=== PATIENT | male | born 1935 | race Caucasian/White ===

== ENCOUNTER 2016-10-18 06:24 | Inpatient (IN) | payer MEDICARE, BC ==
--- NOTE | 2016-10-07 14:04 | HP ---
PREOPERATIVE HISTORY AND PHYSICAL: DATE OF SURGERY: 10/18/16 PROCEDURE: Right total knee replacement. CHIEF COMPLAINT: Right knee pain. HISTORY OF PRESENT ILLNESS: Mr. Santoyo is an 80-year-old male who presented to the clinic for ongoing right knee pain due to severe osteoarthritis. He has failed conservative measures and has therefore agreed to undergo a right total knee replacement with Dr. Beck on 10/18/16. PAST MEDICAL HISTORY: 1. Benign prostatic hypertrophy. 2. Diabetes type 2. 3. Hyperlipidemia. 4. Hypertension. 5. Chronic kidney disease. 6. Neuropathy. 7. Obesity. 8. Osteoporosis. 9. Vitamin D deficiency. 10. Aortic aneurysm 3.5 cm. 11. Metabolic encephalopathy. 12. History of pneumonia, left lower lobe, has resolved. PAST SURGICAL HISTORY: 1. Knee arthroscopy bilaterally. 2. Hernia repair. The patient reports no complications with anesthesia. MEDICATIONS: 1. Aspirin 81 mg 1 by mouth daily. 2. Cozaar 50 mg 1 by mouth daily. 3. Vitamin D 1000 units 1 by mouth daily. 4. Lantus 100 units per mL as directed. 5. Welchol 625 mg. 6. Finasteride 5 mg 1 tablet daily. 7. VESIcare 5 mg daily. 8. Tamsulosin 0.4 mg 1 tablet by mouth daily. ALLERGIES: ZOSYN. FAMILY HISTORY: Positive family history of heart disease and cancer. SOCIAL HISTORY: He is . 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 He lives with his . He is a former smoker. He reports occasional alcohol consumption about 2 beverages a day. He rarely exercises. REVIEW OF SYSTEMS: A 14-point review of systems was reviewed with the patient and found to be positive for intermittent diarrhea, otherwise negative. Denies chest pain, shortness of breath, bleeding disorders, history of DVT or PE, or complications with prior anesthesia. PHYSICAL EXAMINATION GENERAL: A well-developed, well-nourished 81-year-old male, in no acute distress. Alert and oriented x3. Appropriate mood and affect. VITAL SIGNS: Height 72, weight 215. Pulse 68, blood pressure 132/78, respiratory rate 18. BMI 29.2. HEENT: Normocephalic, atraumatic. Throat clear. NECK: Supple. PULMONARY: Lungs are clear to auscultation bilaterally. No wheezing, rhonchi, or rales. CARDIO: Regular rate and rhythm. S1 and S2. No murmurs, rubs, or gallops. No edema. ABDOMEN: Positive bowel sounds. Soft, nontender. NEURO: Alert and oriented x3. Cranial nerves grossly intact. Sensation intact to light touch. MUSCULOSKELETAL: Right knee, skin is intact. Tenderness to palpation over the medial joint line in the medial and lateral borders of the patella. Positive patellar grind. Range of motion from 5 to 110. Stable with varus and valgus stress. +2 dorsalis pedis pulses. Sensation intact to light touch distally. STUDIES: Multiple-view radiographs of the right knee reveal [id number] arthritis of the medial compartment. IMPRESSION: Right knee severe osteoarthritis. PLAN: The patient is scheduled to undergo a right total knee replacement with Dr. Beck on 10/18/16. He has been cleared by his primary care physician. He is awaiting clearance for Cardiology. He will return to the office 1 month postop for followup and x-rays. Prescription for Percocet was e-prescribed to the patient's pharmacy for postoperative pain management and Coumadin was sent to his pharmacy for postop DVT prophylaxis. HUMAIRA MURRAY [id number]/[facility] #: [id number] TU
[~2016-10-18 06:24] MED LIST: Buffered Lidocaine 1% SYRIN* 3 ML/SYR SYRINGE INTRADERM ONE; Famotidine IV* 10 MG/ML 2 ML (20 mg) IV ONE; Metoclopramide IV* 5 MG/ML 2 ML VIAL IV SLOW PU ONE
[2016-10-18] MEDS ORDERED: Metoclopramide IV* 5 MG/ML 2 ML VIAL ONE (06:39)
[2016-10-18] MEDS ORDERED: ceFAZolin 2 GM PREMIX(*) 2 GM/50 ML BAG IVPB ONE (06:39)
[2016-10-18] MEDS ORDERED: Famotidine IV* 10 MG/ML 2 ML (20 mg) ONE (06:39)
[2016-10-18] MEDS ORDERED: Midazolam* 1 MG/ML 5 ML VIAL (5 MG) ONE (06:41)
[2016-10-18] MEDS ORDERED: HYDROmorphone* 1 MG/ML 1 ML SYR ONE ×2 (06:41→08:34)
[2016-10-18] MEDS ORDERED: Morphine PF AMP (0.5MG/ML)* 5 MG/10 ML AMP ONE (06:41)
[2016-10-18] MEDS ORDERED: fentaNYL* 50 MCG/ML 2 ML VIAL (100 MCG VIAL) ONE ×2 (06:41→07:19)
[2016-10-18] MEDS ORDERED: Bupivacaine 0.5% SDV PF* 30 ML VIAL ONE (07:01)
[2016-10-18] MEDS ORDERED: Dexmedetomidine* 200 MCG/2 ML 2 ML VIAL ONE (07:01)
[2016-10-18] MEDS ORDERED: PROCHLORPERAZINE INJ 5 MG/ML 2 ML VIAL IV PRN (07:10)
[2016-10-18] MEDS ORDERED: fentaNYL* 50 MCG/ML 2 ML VIAL (100 MCG VIAL) IV PRN (07:10)
[2016-10-18] MEDS ORDERED: DiMENhydriNATE IV* 50 MG/ML VIAL IV PUSH PRN (07:10)
[2016-10-18] MEDS ORDERED: Ondansetron INJ* 2 MG/ML VIAL IV PRN ×2 (07:10→09:48)
[2016-10-18] MEDS ORDERED: Propofol* 10 MG/ML 20 ML BTL IV PUSH ONE (08:06)
[2016-10-18] MEDS ORDERED: Bisacodyl SUPP* 10 MG SUPP PR PRN (09:48)
[2016-10-18] MEDS ORDERED: Ondansetron TAB* 4 MG PO PRN (09:48)
[2016-10-18] MEDS ORDERED: Morphine INJ* 4 MG/ML 1 ML SYRINGE IV PRN (09:48)
[2016-10-18] MEDS ORDERED: Acetaminophen TAB* 325 MG PO PRN (09:48)
[2016-10-18] MEDS ORDERED: Polyethylene Glycol 3350* 17 GM PACKET PO PRN (09:48)
[2016-10-18] MEDS ORDERED: diPHENhydraMINE IV* 50 MG/ML 1 ml VIAL (BENADRYL) IV PRN (09:48)
[2016-10-18] MEDS ORDERED: LACTULOSE* 30 ML UDC PO PRN (09:48)
[2016-10-18] MEDS ORDERED: D5W 1/2 NS 1000 ML BAG* 1,000 ML IV SCH (10:00)
--- NOTE | 2016-10-18 10:40 | RAD ---
HISTORY: Status post right knee arthroplasty COMPARISONS: October 07, 2016 VIEWS: 2, Frontal and lateral views of the right knee FINDINGS: BONE DENSITY: Normal. BONES: The patient is status post right knee arthroplasty. There is no hardware failure or osteolysis. JOINTS: The patient is status post right knee arthroplasty ALIGNMENT: There is no dislocation. SOFT TISSUES: There is postsurgical change of the soft tissue OTHER FINDINGS: None. IMPRESSION: STATUS POST RIGHT KNEE ARTHROPLASTY
[2016-10-18] MEDS ORDERED: Dextrose 50% Syringe 50 ML* 25 GM/50 ML SYRINGE IV PUSH PRN (14:15)
[2016-10-18] MEDS: Insulin LISPRO* 1 UNITS UNIT SUBCUT SCH (16:39)
[2016-10-18] MEDS: Tamsulosin CAP* 0.4 MG PO SCH (16:54)
[2016-10-18] MEDS: ceFAZolin 1 GM in Dextrose (*) 1 GM/50 ML BAG IVPB SCH (16:54)
[2016-10-18] MEDS ORDERED: Warfarin TAB(*) 4 MG PO ONE (17:00)
[2016-10-18] MEDS: oxyCODONE/Acetamin 5/325 MG* TAB PO PRN (22:10)
[2016-10-18] MEDS ORDERED: oxyCODONE/Acetamin 5/325 MG* TAB PO PRN (22:21)
[2016-10-18] MEDS: Insulin GLARGINE(*) 1 UNITS UNIT SUBCUT SCH (22:22)
[2016-10-18] MEDS: Docusate CAP* 100 MG PO SCH (22:50)
[2016-10-18] MEDS: Solifenacin(NF) 5 MG TAB PO SCH (22:50)
[2016-10-18] MEDS: Magnesium Hydroxide LIQ* 30 ML UDC PO SCH (22:51)
[2016-10-19] MEDS: ceFAZolin 1 GM in Dextrose (*) 1 GM/50 ML BAG IVPB SCH ×2 (00:57→08:06)
--- NOTE | 2016-10-19 01:30 | CONS ---
MEDICAL CONSULTATION REPORT: DATE OF CONSULTATION: PRIMARY CARE PROVIDER: Dr. Pastrana. REQUESTING PROVIDER: Alvarez Beck MD CONSULTING PROVIDER: HUMAIRA Savage SUPERVISING PHYSICIAN: Coty Cordero MD CHIEF COMPLAINT: Status post right total knee replacement. HISTORY OF PRESENT ILLNESS: This is a very pleasant 81-year-old gentleman who underwent a right total knee replacement with Dr. Beck earlier today. He has insulin-dependent diabetes, BPH, hypertension, hyperlipidemia, and chronic kidney disease as well as an abdominal aortic aneurysm. Dr. Beck has requested medical consultation for co-management and assist for comorbid conditions during his postoperative stay. The patient was seen by his primary care provider, Dr. Pastrana, who ordered an aortic ultrasound as well as referral for cardiology consultation preoperatively. Ultrasound of the aorta demonstrated 2 abdominal aortic aneurysms, one measuring 4.1 cm and the other 3.8 cm. This is reportedly slightly larger than prior study from November 2014, the report did not include how much growth. The patient was seen by his human resources team member Dr. Dumont to review the results of the abdominal aortic ultrasound that did not recommend intervention at this time. The patient reports that his insulin has been titrated up to a dose of 45 units twice a day of Lantus and his hemoglobin A1c as of last week was 6.8%. He is followed by Dr. Hayden for Endocrinology. The patient denies any recent illness. He is feeling quite well postoperatively. He underwent a spinal anesthesia and denies any chest pain, shortness of breath, abdominal pain, nausea, or vomiting. PAST MEDICAL HISTORY: 1. BPH. 2. Insulin dependent diabetes. 3. Hyperlipidemia. 4. Chronic kidney disease, stage 3. 5. Diabetic neuropathy. 6. AAA. PAST SURGICAL HISTORY: 1. Knee arthroscopy. 2. Hernia repair. HOME MEDICATIONS: 1. Aspirin 81 mg p.o. daily. 2. Vitamin D 2000 units p.o. daily. 3. Welchol 3 tablets p.o. twice a daily. 4. Finasteride 5 mg p.o. daily. 5. Lantus 45 units subcu twice daily. 6. Losartan 50 mg p.o. daily. 7. Multivitamin 1 tablet p.o. twice daily. 8. [employer] fatty acids 1 capsule p.o. t.i.d. 9. VESIcare 5 mg p.o. at bedtime. 10. Flomax 0.4 mg p.o. at bedtime. SOCIAL HISTORY: The patient lives at home with his . 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 He is a former smoker and occasionally consumes alcohol. REVIEW OF SYSTEMS: As listed above in the HPI and otherwise negative. LABORATORY EVALUATION: I reviewed labs dated 10/08/16, which included a CBC, which was within normal limits and a preop hemoglobin of 14.9 g/dL. A chemistry panel was not available for review. Urinalysis from that same date was unremarkable. IMAGING: Ultrasound of the abdominal aorta was reviewed demonstrating 2 aneurysm regions measuring 4.1 and 3.8 cm, slightly larger when compared to prior study from November 2014. Preop chest x-ray and EKG were not available for review. PHYSICAL EXAMINATION: Vital signs: Temperature 97.3 degrees Fahrenheit, pulse 74 beats per minute, respiratory rate of 16 per minute, oxygen saturation 99% on room, and blood pressure 103/53 mmHg. General: This is a very pleasant 81- year-old gentleman who is sitting comfortably on the hospital bed accompanied by his . HEENT: Head is normocephalic and atraumatic. Mucous membranes are pink and moist. Respiratory: Lungs are clear to auscultation without wheezes, crackles, or rhonchi. Cardiovascular: Heart has a regular rate and rhythm without murmurs, rubs, or gallops. Abdomen: Abdomen is soft and nontender to palpation. Extremities: No significant edema appreciated and distal pulses are intact. Skin: Limited exam shows no concerning rashes or lesions. Psych: The patient is alert and appropriately oriented. ASSESSMENT AND PLAN: This is an 81-year-old gentleman with insulin-dependent diabetes, hypertension, hyperlipidemia, chronic kidney disease, benign prostatic hyperplasia, and known abdominal aortic aneurysm who underwent elective right total knee replacement with Dr. Beck earlier today. Hospitalist group has been consulted for medical management. 1. Status post right total knee replacement - management per orthopedic surgery including DVT prophylaxis, pain management, and discharge planning. 2. Insulin-dependent diabetes - this appears to be well controlled. He is followed by Dr. Hayden for Endocrinology care. We will plan to continue his home doses of Lantus at 45 units twice daily and we will cover additional hyperglycemia with sliding scale Humalog during his hospital stay. 3. Hypertension - the patient is normotensive and slightly hypotensive postoperatively. We will plan to hold his Losartan at this time and determine whether it is appropriate to resume tomorrow. 4. Benign prostatic hyperplasia - Ortiz catheter in place at this time. We will continue his finasteride, Flomax, and VESIcare. The patient is at high risk for urinary retention postoperatively as a result of this. 5. Chronic kidney disease - recent chemistry panel is not available for review , but this is reportedly a stage 3 - basic metabolic panel obtained tomorrow. 6. Abdominal aortic aneurysm - recent aortic aneurysm ultrasound demonstrates measurements of 4.1 and 3.8 cm on 2 different aneurysms. He is followed by cardiology. No intervention suggested. 7. Code status - the patient is full code. 8. DVT prophylaxis - per orthopedic surgery, the patient has been ordered Coumadin and Lovenox for prophylaxis. 9. Health care proxy: The patient's . DISPOSITION: Hospitalist group will continue to follow along during this patient's postoperative stay. HUMAIRA SAVAGE CC: Dr. Pastrana* [id number]/[facility] #: [id number] TU
[2016-10-19] MEDS: oxyCODONE/Acetamin 5/325 MG* TAB PO PRN ×4 (05:33→21:49)
[2016-10-19] MEDS: Docusate CAP* 100 MG PO SCH ×2 (07:59→22:12)
[2016-10-19] MEDS: Magnesium Hydroxide LIQ* 30 ML UDC PO SCH ×2 (07:59→22:12)
[2016-10-19] MEDS: Vitamin THERAPEUTIC TAB PO SCH (07:59)
[2016-10-19] MEDS: Finasteride TAB* 5 MG PO SCH (08:00)
[2016-10-19] MEDS: Insulin LISPRO* 1 UNITS UNIT SUBCUT SCH ×3 (08:01→17:47)
[2016-10-19] MEDS: Insulin GLARGINE(*) 1 UNITS UNIT SUBCUT SCH ×2 (08:01→22:15)
--- NOTE | 2016-10-19 08:04 | OP ---
OPERATIVE REPORT: DATE OF OPERATION: 10/18/16 DATE OF : 33 SURGEON: Alvarez Beck MD. SOCIAL WORK THERAPIST: Nelia Blanchard RPA. ANESTHESIA: Spinal, with sedation. PRE-OP DIAGNOSIS: Osteoarthritis, right knee. POST-OP DIAGNOSIS: Osteoarthritis, right knee. OPERATIVE PROCEDURE: Right total knee arthroplasty. ESTIMATED BLOOD LOSS: Less than 50 cc. COMPLICATIONS: None. HARDWARE: Bhavin Person[employer] #9 femur, G tibia, 10 mm polyethylene spacer, 38 mm all polyethylene herrera lar button. SUMMARY: Mr. Santoyo is an 81-year-old male who has had more and more troubles with right knee pa in. It is very specifically [id number] in the medial compartment and has become more limited stephen use of his knee pain. I discussed with him that a total knee arthroplasty should work well to decre ase his pain and improve his function. Risks of surgery such as infection, scar formation, stiffnes s, DVT, pulmonary embolism, hardware failure, and continued pain were some of the risks discussed. He had been declared medically optimized and wished to proceed. DESCRIPTION OF PROCEDURE: The patient was brought to the OR and spinal anesthesia was established. Ortiz catheter was placed. Tourniquet was placed over the proximal thigh and was used during the c ase. Total tourniquet time would be 88 minutes. Right knee was prepped and then draped. Esmarch w as used to exsanguinate the leg and the tourniquet was raised. Midline incision was made coming jus t medial to the tibial tubercle and was carried down through the skin and subcutaneous tissues. Sma ll bleeders encountered were ligated using electrocautery. Sharp parapatellar arthrotomy was made a nd quite a bit of clear, thick, yellowish joint fluid was encountered. Soft tissues were sharply el evated from the medial side of the tibia and the fat pad were sharply excised. Patella measured 26 mm in thickness and a 10 to 11 mm cut was taken. Patella was then easily subluxated laterally and t he knee was flexed up. Nice exposure to the distal femur was obtained. Step drill was used to open the femoral canal, intramedullary guide was placed. Guide was adjusted until it appeared parallel with the epicondyles and posterior condyles and then was pinned into place. Distal femoral cutting guide was then pinned in place and the intramedullary guide was removed. Distal femoral cut was dawn en and it appeared a nice cut was obtained. Femur was sized and he sat just above a 9. I felt it wo uld be better to undersize him a little bit and a 9 cutting block was called for. Drill was run thr ough the superior hole and it came out just in the cortex, so I did not think we would notch the ant erior cortex of the femur. Anterior and posterior femoral cuts, followed by the chamfer cuts were a ll taken. Attention was turned to the tibia. Step drill was used to open the tibial canal and the intramedullary guide was placed. Outrigger was adjusted until it appeared it would take 2 mm from th e very worn medial side. Proximal tibial cut was then taken and lateral meniscus was also removed. Spacer block was placed and it could be seen that the tibial cut was perfect as the alignment soniya c obie right down the anterior spine of the tibia, but on the femoral side it appeared that I could dawn e a little bit more from the medial side as he will come into slight valgus if I seated the top of t he spacer block on the femur. Using a free hand cut approximately 1 to 2 mm was taken from the medi al femoral condyle. Cutting block was replaced and the chamfer cut was recut with a 12 block, this really sat perfectly. Proximal tibia was then sized and the G sat perfectly. Proximal tibia was dr illed and then punched. Attention was returned to the femur and a #9 was placed and stud holes were drilled and the notch cut was taken. A 10 spacer was then placed and he came out nicely into full extension without any instability and easily flexed past 135 degrees. Patellar tracking was fine wi th this. Patella was measured and a 38 seemed to sit quite well. Holes were drilled and trial was snapped into place, and patellar tracking was perfect. Trial instrumentation was removed and the floyd ent was being prepared. The knee was copiously pulse lavaged. Tibia, followed by femur and patella were all cemented into place and the cement was allowed to harden. Knee was then searched for exce ss cement and a few small pieces were found. He was again trialed with a 10 and had the same wonder ful motion and stability; 10 polyethylene was then snapped into place. Knee was again copiously pul se lavaged and the parapatellar arthrotomy was repaired using interrupted #1 Vicryl sutures. Tourni quet was let down and no significant bleeding was encountered. Knee was again pulse lavaged and the subcutaneous tissues were reapproximated using 2-0 Vicryl. Skin was closed using bang. Steril e dressing and Cryo/Cuff were applied in the OR. The patient was then awakened and stable on transf er to the recovery room. [id number]/[facility] #: [id number]
[2016-10-19 09:02] LABS: Hematocrit 34 % (42-52); Hemoglobin 11.6 g/dl (14.0-18.0)
[2016-10-19 09:05] LABS: Comments Flag Yes
[2016-10-19] MEDS: Heparin VIAL(*) 5000 UNITS/ML VIAL (FIVE THOUSAND) SUBCUT SCH ×2 (09:13→22:12)
[2016-10-19 09:36] LABS: BUN/Creatinine Ratio 14.2 (8-20); Calcium 8.2 mg/dL (8.6-10.3); EGFR African American 50.2 (>60); Potassium 4.1 mmol/L (3.5-5.0)
--- NOTE | 2016-10-19 09:38 | PN ---
Progress Note - Progress Note SOAP: Subjective: []Patient seen OOB in chair. Complains of moderate right knee pain. Denies SOB , CP or dizziness. Hoping to go home with VNS. Objective: [] Vital Signs Temp 98.3 F 10/19/16 07:35 Pulse 74 10/19/16 07:35 Resp 18 10/19/16 08:00 BP 103/60 10/19/16 07:35 Pulse Ox 98 10/19/16 07:35 Intake & Output 10/18/16 10/19/16 10/19/16 18:59 06:59 18:59 Intake Total 3651 2472 320 Output Total 500 850 250 Balance 3151 1622 70 Intake: IV Fluids 3450 672 D5W 1/2 NS 672 LR 3400 NS 50ML, Cefazolin 2G 50 IVPB 201 D5W 1/2 NS 201 Oral 1800 320 Output: Ortiz 250 850 250 Estimated Blood Loss 250 Laboratory Results - last 24 hr 10/18/16 10/18/16 10/18/16 09:51 16:27 21:38 Hgb Hct INR (Anticoag Therapy) Sodium Potassium Chloride Carbon Dioxide Anion Gap BUN Creatinine Est GFR ( Amer) Est GFR (Non-Af Amer) BUN/Creatinine Ratio Glucose POC Glucose (mg/dL) 123 H 134 H 154 H Calcium 10/19/16 10/19/16 10/19/16 07:27 08:50 08:50 Hgb 11.6 L Hct 34 L INR (Anticoag Therapy) 1.21 H Sodium Potassium Chloride Carbon Dioxide Anion Gap BUN Creatinine Est GFR ( Amer) Est GFR (Non-Af Amer) BUN/Creatinine Ratio Glucose POC Glucose (mg/dL) 186 H Calcium 10/19/16 08:50 Hgb Hct INR (Anticoag Therapy) Sodium 132 L Potassium 4.1 Chloride 101 Carbon Dioxide 23 Anion Gap 8 BUN 24 Creatinine 1.69 H Est GFR ( Amer) 50.2 Est GFR (Non-Af Amer) 39.0 BUN/Creatinine Ratio 14.2 Glucose 161 H POC Glucose (mg/dL) Calcium 8.2 L right knee dressing is dry and intact, cryo on calf is NT and soft +DF/PF right ankle neurovascularly intact distally Assessment: []s/p Right total knee arthroplasty POD #1 Plan: []PT/OT WBAT pain management Heparin/ Coumadin for DVT prophylaxis: Coumadin 6 mg today Home with VNS
--- NOTE | 2016-10-19 15:01 | PN ---
Subjective Date of Service: 10/19/16 Interval History: Patient reports fair pain control. Denies CP, SOB, abdominal pain, n/v. He reports that he had difficulty working with PT and his doesn't feel that she would be able to handle him at home. Objective Active Medications: Acetaminophen (Tylenol Tab*) 650 mg PO Q4H PRN PRN Reason: pain, fever Last Admin: 10/18/16 16:55 Dose: 650 mg Bisacodyl (Dulcolax Supp*) 10 mg NE DAILY PRN PRN Reason: constipation Colesevelam HCl (Welchol(Nf)) 1,875 mg PO BID [facility] Dextrose (D50w Syringe 50 Ml*) 12.5 gm IV PUSH .FOR FS < 60 - SS PRN PRN Reason: FS < 60 Diphenhydramine HCl (Benadryl Iv*) 12.5 mg IV Q6H PRN PRN Reason: PRURITIS Docusate Sodium (Colace Cap*) 100 mg PO BID [facility] Last Admin: 10/19/16 07:59 Dose: 100 mg Finasteride (Proscar Tab*) 5 mg PO QAM [facility] Last Admin: 10/19/16 08:00 Dose: 5 mg Heparin Sodium (Porcine) (Heparin Vial(*)) 5,000 units SUBCUT Q12HR [facility] Last Admin: 10/19/16 09:13 Dose: 5,000 units Dextrose/Sodium Chloride (D5w 1/2 Ns 1000 Ml Bag*) 1,000 mls @ 100 mls/hr IV PER RATE [facility] Last Admin: 10/19/16 00:55 Dose: 100 mls/hr Insulin Glargine (Lantus(*)) 45 units SUBCUT BID [facility] Last Admin: 10/19/16 08:01 Dose: 45 unit Insulin Human Lispro (Humalog*) 0 units SUBCUT AC [facility] PRN Reason: Protocol Lactulose (Lactulose*) 30 ml PO Q6H PRN PRN Reason: constipation Magnesium Hydroxide (Milk Of Magnesia Liq*) 30 ml PO BID [facility] Last Admin: 10/19/16 07:59 Dose: 30 ml Morphine Sulfate (Morphine Inj (Syringe)*) 4 mg IV Q2H PRN PRN Reason: PAIN - BREAKTHROUGH Multivitamins (Theragran Tab*) 1 tab PO DAILY [facility] Last Admin: 10/19/16 07:59 Dose: 1 tab Ondansetron HCl (Zofran Inj*) 4 mg IV Q6H PRN PRN Reason: nausea Ondansetron HCl (Zofran Tab*) 4 mg PO Q6H PRN PRN Reason: NAUSEA Last Admin: 10/19/16 09:13 Dose: 4 mg Oxycodone HCl (Roxycodone Tab*) 10 mg PO Q4H PRN PRN Reason: PAIN - SEVERE Oxycodone/Acetaminophen (Percocet 5/325 Tab*) 1 tab PO Q4H PRN PRN Reason: PAIN - MILD Oxycodone/Acetaminophen (Percocet 5/325 Tab*) 2 tab PO Q4H PRN PRN Reason: PAIN - MODERATE Last Admin: 10/19/16 13:08 Dose: 2 tab Oxycodone/Acetaminophen (Percocet 5/325 Tab*) 2 tab PO Q3H PRN PRN Reason: PAIN Pharmacy Profile Note (Coumadin Daily Reminder*) 1 note FOLLOW UP 1700 [facility] Polyethylene Glycol/Electrolytes (Miralax*) 17 gm PO DAILY PRN PRN Reason: Constipation Solifenacin (Vesicare(Nf)) 5 mg PO BEDTIME [facility] Last Admin: 10/18/16 22:50 Dose: 5 mg Tamsulosin HCl (Flomax Cap*) 0.4 mg PO QPM [facility] Last Admin: 10/18/16 16:54 Dose: 0.4 mg Warfarin Sodium (Coumadin Tab(*)) 6 mg PO ONCE@1700 ONE PRN Reason: Protocol Stop: 10/19/16 17:01 Vital Signs: Temp Pulse Resp BP Pulse Ox 99.4 F 70 16 121/56 96 10/19/16 11:49 10/19/16 11:49 10/19/16 13:08 10/19/16 11:49 10/19/16 11:49 Oxygen Devices in Use Now: Nasal Cannula Appearance: Patient appears very lethargic, but in NAD. Accompanied by . Neck: NL Appearance and Movements; NL JVP Respiratory: Symmetrical Chest Expansion and Respiratory Effort, Clear to Auscultation Cardiovascular: NL Sounds; No Murmurs; No JVD, RRR Abdominal: NL Sounds; No Tenderness; No Distention Extremities: No Edema Skin: No Rash or Ulcers Neurological: Alert and Oriented x 3 Result Diagrams: 10/19/16 08:50 10/19/16 08:50 Assess/Plan/Problems-Billing Assessment: This is an 81 yo male with IDDM, BPH, HLD, CKD, diabetic neuropathy and AAA who is s/p R TKR by Dr Beck on 10/18/16. Hospitalist group consulted for medical co-management. - Patient Problems (1) Status post total knee replacement Comment: POD #1 Management per ortho (2) IDDM (insulin dependent diabetes mellitus) Comment: Last HgbA1c 6.8% Mild hyperglycemia today Cont Lantus at home dose Will increase mealtime Humalog (3) HTN (hypertension) Comment: Normotensive today Plan to resume losartan tomorrow am (4) BPH (benign prostatic hyperplasia) Comment: Cont finesteride, Vesicare, Flomax (5) HLD (hyperlipidemia) (6) CKD (chronic kidney disease) Comment: Stage III Appears near baseline Avoid nephrotoxic agents (7) AAA (abdominal aortic aneurysm) (8) Diabetic neuropathy (9) Full code status (10) DVT prophylaxis Status and Disposition: Discharge planning per ortho. Patient would likely benefit from CHEY stay. No acute medical concerns
[2016-10-19] MEDS ORDERED: Warfarin TAB(*) 6 MG PO ONE (17:00)
[2016-10-19] MEDS: Tamsulosin CAP* 0.4 MG PO SCH (17:48)
[2016-10-19] MEDS: Colesevelam(NF) 625 MG TAB PO SCH (22:12)
[2016-10-19] MEDS: Solifenacin(NF) 5 MG TAB PO SCH (22:12)
[2016-10-20] MEDS: oxyCODONE TAB* 5 MG TAB PO PRN (03:42)
[2016-10-20 06:54] LABS: Hematocrit 33 % (42-52); Hemoglobin 11.2 g/dl (14.0-18.0)
[2016-10-20 06:59] LABS: Comments Flag Yes
[2016-10-20] MEDS: Colesevelam(NF) 625 MG TAB PO SCH (08:36)
[2016-10-20] MEDS: Heparin VIAL(*) 5000 UNITS/ML VIAL (FIVE THOUSAND) SUBCUT SCH ×2 (08:36→20:16)
[2016-10-20] MEDS: Insulin LISPRO* 1 UNITS UNIT SUBCUT SCH ×3 (08:37→18:02)
[2016-10-20] MEDS: Docusate CAP* 100 MG PO SCH ×2 (08:38→20:16)
[2016-10-20] MEDS: Finasteride TAB* 5 MG PO SCH (08:38)
[2016-10-20] MEDS: Losartan TAB* 25 MG PO SCH (08:39)
[2016-10-20] MEDS: Vitamin THERAPEUTIC TAB PO SCH (08:39)
[2016-10-20] MEDS: Magnesium Hydroxide LIQ* 30 ML UDC PO SCH ×2 (08:40→20:16)
[2016-10-20] MEDS: Insulin GLARGINE(*) 1 UNITS UNIT SUBCUT SCH ×2 (08:40→20:42)
[2016-10-20] MEDS: oxyCODONE/Acetamin 5/325 MG* TAB PO PRN ×2 (08:45→20:16)
[2016-10-20] MEDS ORDERED: Warfarin TAB(*) 6 MG PO SCH (17:00)
[2016-10-20] MEDS: Tamsulosin CAP* 0.4 MG PO SCH (18:01)
--- NOTE | 2016-10-20 18:23 | PN ---
Subjective Date of Service: 10/20/16 Interval History: Patient seen and examined at bedside. Pt states that his pain is controlled and he offers no complaints. Denies fever, chills, shortness of breath, chest discomfort, N/V/D. Family History: Unchanged from Admission Social History: Unchanged from Admission Past Medical History: Unchanged from Admission Objective Active Medications: Acetaminophen (Tylenol Tab*) 650 mg PO Q4H PRN Reason: pain, fever Bisacodyl (Dulcolax Supp*) 10 mg MI DAILY PRN Reason: constipation Colesevelam HCl (Welchol(Nf)) 1,875 mg PO BID [facility] Dextrose (D50w Syringe 50 Ml*) 12.5 gm IV PUSH .FOR FS < 60 - SS PRN Reason: FS < 60 Diphenhydramine HCl (Benadryl Iv*) 12.5 mg IV Q6H PRN Reason: PRURITIS Docusate Sodium (Colace Cap*) 100 mg PO BID [facility] Finasteride (Proscar Tab*) 5 mg PO QAM [facility] Heparin Sodium (Porcine) (Heparin Vial(*)) 5,000 units SUBCUT Q12HR [facility] Stop: 10/20/16 21:00 Insulin Glargine (Lantus(*)) 45 units SUBCUT BID [facility] Insulin Human Lispro (Humalog*) 0 units SUBCUT AC [facility] Reason: Protocol Lactulose (Lactulose*) 30 ml PO Q6H PRN Reason: constipation Losartan Potassium (Cozaar Tab*) 50 mg PO QAM [facility] Magnesium Hydroxide (Milk Of Magnesia Liq*) 30 ml PO BID [facility] Morphine Sulfate (Morphine Inj (Syringe)*) 4 mg IV Q2H PRN Reason: PAIN - BREAKTHROUGH Multivitamins (Theragran Tab*) 1 tab PO DAILY [facility] Ondansetron HCl (Zofran Inj*) 4 mg IV Q6H PRN Reason: nausea Ondansetron HCl (Zofran Tab*) 4 mg PO Q6H PRN Reason: NAUSEA Oxycodone HCl (Roxycodone Tab*) 10 mg PO Q4H PRN Reason: PAIN - SEVERE Oxycodone/Acetaminophen (Percocet 5/325 Tab*) 1 tab PO Q4H PRN Reason: PAIN - MILD Oxycodone/Acetaminophen (Percocet 5/325 Tab*) 2 tab PO Q4H PRN Reason: PAIN - MODERATE Oxycodone/Acetaminophen (Percocet 5/325 Tab*) 2 tab PO Q3H PRN Reason: PAIN Pharmacy Profile Note (Coumadin Daily Reminder*) 1 note FOLLOW UP 1700 [facility] Polyethylene Glycol/Electrolytes (Miralax*) 17 gm PO DAILY PRN Reason: Constipation Solifenacin (Vesicare(Nf)) 5 mg PO BEDTIME [facility] Tamsulosin HCl (Flomax Cap*) 0.4 mg PO QPM [facility] Vital Signs 10/19/16 10/19/16 10/19/16 20:13 21:49 21:50 Temperature 98.2 F Pulse Rate 84 Respiratory 20 18 18 Rate Blood Pressure 140/63 (mmHg) O2 Sat by Pulse 98 Oximetry 10/19/16 10/19/16 10/20/16 23:49 23:57 03:42 Temperature 98.1 F Pulse Rate 45 54 Respiratory 16 18 Rate Blood Pressure 131/62 (mmHg) O2 Sat by Pulse 91 Oximetry 10/20/16 10/20/16 10/20/16 04:30 05:42 08:00 Temperature 98.0 F Pulse Rate 78 Respiratory 15 16 18 Rate Blood Pressure 128/62 (mmHg) O2 Sat by Pulse 92 Oximetry 10/20/16 10/20/16 10/20/16 08:05 08:45 10:45 Temperature 98.6 F Pulse Rate 78 Respiratory 17 17 18 Rate Blood Pressure 134/65 (mmHg) O2 Sat by Pulse 96 Oximetry 10/20/16 10/20/16 11:50 15:44 Temperature 98.6 F 98.9 F Pulse Rate 78 76 Respiratory 17 20 Rate Blood Pressure 133/61 132/69 (mmHg) O2 Sat by Pulse 97 96 Oximetry Oxygen Devices in Use Now: Nasal Cannula Appearance: NAD, sitting up in bed. Ears/Nose/Mouth/Throat: NL Teeth, Lips, Gums, Mucous Membranes Moist Neck: NL Appearance and Movements; NL JVP, Trachea Midline Respiratory: Symmetrical Chest Expansion and Respiratory Effort, Clear to Auscultation Cardiovascular: NL Sounds; No Murmurs; No JVD, RRR Abdominal: NL Sounds; No Tenderness; No Distention Extremities: No Edema Skin: - - Dressing to right knee clean, dry and intact Neurological: Alert and Oriented x 3, NL Muscle Strength and Tone Lines/Tubes/Other Access: Clean, Dry and Intact Peripheral IV - site benign Nutrition: Taking PO's Result Diagrams: 10/20/16 06:27 10/19/16 08:50 Assess/Plan/Problems-Billing Assessment: Mr. Max is an 81 yo male with IDDM, BPH, HLD, CKD, diabetic neuropathy and AAA who is s/p R TKR by Dr Beck on 10/18/16. Hospitalist group consulted for medical co-management. - Patient Problems (1) Status post total knee replacement Code(s): Z96.659 - PRESENCE OF UNSPECIFIED ARTIFICIAL KNEE JOINT SNOMED Code(s ): 3655073267155 Comment: - POD #2 - Management per ortho - HH stable - Continue OT/PT (2) IDDM (insulin dependent diabetes mellitus) Code(s): E11.9 - TYPE 2 DIABETES MELLITUS WITHOUT COMPLICATIONS; Z79.4 - [employer] (CURRENT) USE OF INSULIN SNOMED Code(s): 67399054 Comment: - Last HgbA1c 6.8% - Mild hyperglycemia today - Continue Lantus and Lispro (3) HTN (hypertension) Code(s): I10 - ESSENTIAL (PRIMARY) HYPERTENSION SNOMED Code(s): 48128795 Comment: - Normotensive today - Continue losartan (4) BPH (benign prostatic hyperplasia) Code(s): N40.0 - BENIGN PROSTATIC HYPERPLASIA WITHOUT LOWER URINRY TRACT SYMP SNOMED Code(s): 620535734 Comment: - Continue finesteride, Vesicare, and Flomax (5) CKD (chronic kidney disease) Code(s): N18.9 - CHRONIC KIDNEY DISEASE, UNSPECIFIED SNOMED Code(s): 578208845 Comment: - Stage III - Appears near baseline - Avoid nephrotoxic agents (6) HLD (hyperlipidemia) Code(s): E78.5 - HYPERLIPIDEMIA, UNSPECIFIED SNOMED Code(s): 11404372 (7) AAA (abdominal aortic aneurysm) Code(s): I71.4 - ABDOMINAL AORTIC ANEURYSM, WITHOUT RUPTURE SNOMED Code(s): 488797682 (8) Diabetic neuropathy Code(s): E11.40 - TYPE 2 DIABETES MELLITUS WITH DIABETIC NEUROPATHY, UNSP SNOMED Code(s): 855940987 (9) DVT prophylaxis Code(s): WQH6105 - SNOMED Code(s): 142053800 Comment: - Heparin SQ to Warfarin per Ortho (10) Full code status Code(s): Z78.9 - OTHER SPECIFIED HEALTH STATUS SNOMED Code(s): 454604505 Status and Disposition: Discharge planning per ortho. Patient would likely benefit from [facility] stay. No acute medical concerns
[2016-10-20] MEDS: SOLIFENACIN 5 MG PO SCH (20:42)
[2016-10-20] MEDS: COLESEVELAM 625 MG PO SCH (20:42)
[2016-10-21] MEDS: oxyCODONE TAB* 5 MG TAB PO PRN ×3 (00:15→22:31)
[2016-10-21] MEDS: oxyCODONE/Acetamin 5/325 MG* TAB PO PRN ×3 (05:05→20:37)
[2016-10-21 06:12] LABS: Hematocrit 30 % (42-52); Hemoglobin 10.4 g/dl (14.0-18.0)
[2016-10-21 06:16] LABS: Comments Flag Yes
[2016-10-21] MEDS: Insulin LISPRO* 1 UNITS UNIT SUBCUT SCH ×3 (07:31→17:18)
--- NOTE | 2016-10-21 07:39 | PN ---
Subjective Date of Service: 10/21/16 Interval History: Patient seen and examined at bedside. Pt states that he is feeling well this morning and his pain is controlled. Denies fever, chills, shortness of breath, chest discomfort, N/V/D. Pt states that he is urinating without difficulty and had a small bowel movement yesterday. Family History: Unchanged from Admission Social History: Unchanged from Admission Past Medical History: Unchanged from Admission Objective Active Medications: Acetaminophen (Tylenol Tab*) 650 mg PO Q4H PRN Reason: pain, fever Bisacodyl (Dulcolax Supp*) 10 mg RI DAILY PRN Reason: constipation Colesevelam HCl (Welchol(Nf)) 1,875 mg PO BID [facility] Dextrose (D50w Syringe 50 Ml*) 12.5 gm IV PUSH .FOR FS < 60 - SS PRN Reason: FS < 60 Diphenhydramine HCl (Benadryl Iv*) 12.5 mg IV Q6H PRN Reason: PRURITIS Docusate Sodium (Colace Cap*) 100 mg PO BID [facility] Finasteride (Proscar Tab*) 5 mg PO QAM [facility] Insulin Glargine (Lantus(*)) 45 units SUBCUT BID [facility] Insulin Human Lispro (Humalog*) 0 units SUBCUT AC [facility] Reason: Protocol Lactulose (Lactulose*) 30 ml PO Q6H PRN Reason: constipation Losartan Potassium (Cozaar Tab*) 50 mg PO QAM [facility] Magnesium Hydroxide (Milk Of Magnesia Liq*) 30 ml PO BID [facility] Morphine Sulfate (Morphine Inj (Syringe)*) 4 mg IV Q2H PRN Reason: PAIN - BREAKTHROUGH Multivitamins (Theragran Tab*) 1 tab PO DAILY [facility] Ondansetron HCl (Zofran Inj*) 4 mg IV Q6H PRN Reason: nausea Ondansetron HCl (Zofran Tab*) 4 mg PO Q6H PRN Reason: NAUSEA Oxycodone HCl (Roxycodone Tab*) 10 mg PO Q4H PRN Reason: PAIN - SEVERE Oxycodone/Acetaminophen (Percocet 5/325 Tab*) 1 tab PO Q4H PRN Reason: PAIN - MILD Oxycodone/Acetaminophen (Percocet 5/325 Tab*) 2 tab PO Q4H PRN Reason: PAIN - MODERATE Oxycodone/Acetaminophen (Percocet 5/325 Tab*) 2 tab PO Q3H PRN Reason: PAIN Pharmacy Profile Note (Coumadin Daily Reminder*) 1 note FOLLOW UP 1700 [facility] Polyethylene Glycol/Electrolytes (Miralax*) 17 gm PO DAILY PRN Reason: Constipation Solifenacin (Vesicare(Nf)) 5 mg PO BEDTIME [facility] Tamsulosin HCl (Flomax Cap*) 0.4 mg PO QPM [facility] Vital Signs 10/20/16 10/20/16 10/20/16 08:00 08:05 08:45 Temperature 98.6 F Pulse Rate 78 Respiratory 18 17 17 Rate Blood Pressure 134/65 (mmHg) O2 Sat by Pulse 96 Oximetry 10/20/16 10/20/16 10/20/16 10:45 11:50 15:44 Temperature 98.6 F 98.9 F Pulse Rate 78 76 Respiratory 18 17 20 Rate Blood Pressure 133/61 132/69 (mmHg) O2 Sat by Pulse 97 96 Oximetry 10/20/16 10/20/16 10/20/16 19:58 20:16 20:23 Temperature 99.6 F Pulse Rate 79 Respiratory 16 18 18 Rate Blood Pressure 147/65 (mmHg) O2 Sat by Pulse 98 Oximetry 10/20/16 10/20/16 10/21/16 22:16 23:30 00:15 Temperature 98.3 F Pulse Rate 88 Respiratory 18 18 18 Rate Blood Pressure 134/71 (mmHg) O2 Sat by Pulse 97 Oximetry 10/21/16 10/21/16 10/21/16 02:15 03:20 05:05 Temperature 98.0 F Pulse Rate 74 Respiratory 16 16 16 Rate Blood Pressure 134/52 (mmHg) O2 Sat by Pulse 96 Oximetry Oxygen Devices in Use Now: None Appearance: NAD, sitting up in bed Eyes: No Scleral Icterus Ears/Nose/Mouth/Throat: Mucous Membranes Moist Respiratory: Symmetrical Chest Expansion and Respiratory Effort, Clear to Auscultation Cardiovascular: NL Sounds; No Murmurs; No JVD, RRR Abdominal: NL Sounds; No Tenderness; No Distention Extremities: - - 2+ edema to right LE Skin: - - Dressing to right knee clean, dry and intact Neurological: Alert and Oriented x 3, NL Muscle Strength and Tone Lines/Tubes/Other Access: Clean, Dry and Intact Peripheral IV - site benign Nutrition: Taking PO's Result Diagrams: 10/21/16 05:53 10/19/16 08:50 Assess/Plan/Problems-Billing Assessment: Mr. Max is an 81 yo male with IDDM, BPH, HLD, CKD, diabetic neuropathy and AAA who is s/p R TKR by Dr Beck on 10/18/16. Hospitalist group consulted for medical co-management. - Patient Problems (1) Status post total knee replacement Code(s): Z96.659 - PRESENCE OF UNSPECIFIED ARTIFICIAL KNEE JOINT SNOMED Code(s ): 8005938658496 Comment: - POD #3 - Management per ortho - HH stable - Continue OT/PT (2) IDDM (insulin dependent diabetes mellitus) Code(s): E11.9 - TYPE 2 DIABETES MELLITUS WITHOUT COMPLICATIONS; Z79.4 - [facility] (CURRENT) USE OF INSULIN SNOMED Code(s): 80334414 Comment: - Last HgbA1c 6.8% - Mild hyperglycemia yesterday, improved this morning - Continue Lantus and Lispro (3) HTN (hypertension) Code(s): I10 - ESSENTIAL (PRIMARY) HYPERTENSION SNOMED Code(s): 01942680 Comment: - Normotensive today - Continue losartan (4) BPH (benign prostatic hyperplasia) Code(s): N40.0 - BENIGN PROSTATIC HYPERPLASIA WITHOUT LOWER URINRY TRACT SYMP SNOMED Code(s): 952222258 Comment: - Continue finesteride, Vesicare, and Flomax (5) CKD (chronic kidney disease) Code(s): N18.9 - CHRONIC KIDNEY DISEASE, UNSPECIFIED SNOMED Code(s): 109098658 Comment: - Stage III - Appears near baseline - Avoid nephrotoxic agents (6) HLD (hyperlipidemia) Code(s): E78.5 - HYPERLIPIDEMIA, UNSPECIFIED SNOMED Code(s): 15525495 Comment: - Continue Welchol (7) AAA (abdominal aortic aneurysm) Code(s): I71.4 - ABDOMINAL AORTIC ANEURYSM, WITHOUT RUPTURE SNOMED Code(s): 283582972 (8) Diabetic neuropathy Code(s): E11.40 - TYPE 2 DIABETES MELLITUS WITH DIABETIC NEUROPATHY, UNSP SNOMED Code(s): 009032037 (9) DVT prophylaxis Code(s): KEO5470 - SNOMED Code(s): 406360756 Comment: - Heparin SQ to Warfarin per Ortho (10) Full code status Code(s): Z78.9 - OTHER SPECIFIED HEALTH STATUS SNOMED Code(s): 914743801 Status and Disposition: Inpatient. Disposition per ortho. Plan for discharge to [facility] Swing bed today. No acute medical concerns
[2016-10-21] MEDS: COLESEVELAM 625 MG PO SCH ×2 (08:45→20:38)
[2016-10-21] MEDS: Docusate CAP* 100 MG PO SCH ×2 (08:46→20:38)
[2016-10-21] MEDS: Magnesium Hydroxide LIQ* 30 ML UDC PO SCH ×2 (08:46→20:14)
[2016-10-21] MEDS: Vitamin THERAPEUTIC TAB PO SCH (08:47)
[2016-10-21] MEDS: Losartan TAB* 25 MG PO SCH (08:47)
[2016-10-21] MEDS: Finasteride TAB* 5 MG PO SCH (08:47)
[2016-10-21] MEDS: Insulin GLARGINE(*) 1 UNITS UNIT SUBCUT SCH ×2 (08:48→20:42)
--- NOTE | 2016-10-21 09:48 | PN ---
Progress Note - Progress Note SOAP: Subjective: []Patient seen at bedside today. He is doing well. Had increased knee pain after getting up this am but now has improved greatly after dose of pain medication. Objective: [] Vital Signs Temp 98.3 F 10/21/16 08:17 Pulse 76 10/21/16 08:17 Resp 18 10/21/16 08:17 BP 139/75 10/21/16 08:17 Pulse Ox 95 10/21/16 08:17 Intake & Output 10/20/16 10/21/16 10/21/16 18:59 06:59 18:59 Intake Total 900 2000 360 Output Total 1350 575 200 Balance -450 1425 160 Intake: Oral 900 2000 360 Output: Urine 1350 575 200 Other: # Bowel Movements 1 Estimated Stool Amount Small Laboratory Results - last 24 hr 10/20/16 10/20/16 10/20/16 12:28 16:27 20:28 Hgb Hct INR (Anticoag Therapy) POC Glucose (mg/dL) 198 H 209 H 194 H 10/21/16 10/21/16 10/21/16 05:53 05:54 07:22 Hgb 10.4 L Hct 30 L INR (Anticoag Therapy) 1.28 H POC Glucose (mg/dL) 125 H Right knee incision is benign calf NT and soft +DF/PF right ankle remain neurovascularly intact Assessment: []s/p Right total knee arthroplasty POD #3 Plan: []Stable orthopedically for discharge Swing bed at [place] will not be available until Tuesday per case management Coumadin 8mg today
[2016-10-21] MEDS ORDERED: Warfarin TAB(*) 4 MG PO ONE (17:00)
[2016-10-21] MEDS: Tamsulosin CAP* 0.4 MG PO SCH (17:17)
[2016-10-21] MEDS: SOLIFENACIN 5 MG PO SCH (20:39)
[2016-10-22] MEDS: oxyCODONE TAB* 5 MG TAB PO PRN ×2 (04:25→09:18)
--- NOTE | 2016-10-22 07:33 | PN ---
Subjective Date of Service: 10/22/16 Interval History: Patient seen and examined at bedside. Pt states that he is feeling well this morning and his pain is controlled. Denies fever, chills, shortness of breath, chest discomfort, N/V/D. Family History: Unchanged from Admission Social History: Unchanged from Admission Past Medical History: Unchanged from Admission Objective Active Medications: Acetaminophen (Tylenol Tab*) 650 mg PO Q4H PRN Reason: pain, fever Bisacodyl (Dulcolax Supp*) 10 mg MI DAILY PRN Reason: constipation Colesevelam HCl (Welchol(Nf)) 1,875 mg PO BID [facility] Dextrose (D50w Syringe 50 Ml*) 12.5 gm IV PUSH .FOR FS < 60 - SS PRN Reason: FS < 60 Diphenhydramine HCl (Benadryl Iv*) 12.5 mg IV Q6H PRN Reason: PRURITIS Docusate Sodium (Colace Cap*) 100 mg PO BID [facility] Finasteride (Proscar Tab*) 5 mg PO QAM [facility] Insulin Glargine (Lantus(*)) 45 units SUBCUT BID [facility] Insulin Human Lispro (Humalog*) 0 units SUBCUT AC [facility] Reason: Protocol Lactulose (Lactulose*) 30 ml PO Q6H PRN Reason: constipation Losartan Potassium (Cozaar Tab*) 50 mg PO QAM [facility] Magnesium Hydroxide (Milk Of Magnesia Liq*) 30 ml PO BID [facility] Morphine Sulfate (Morphine Inj (Syringe)*) 4 mg IV Q2H PRN Reason: PAIN - BREAKTHROUGH Multivitamins (Theragran Tab*) 1 tab PO DAILY [facility] Ondansetron HCl (Zofran Inj*) 4 mg IV Q6H PRN Reason: nausea Ondansetron HCl (Zofran Tab*) 4 mg PO Q6H PRN Reason: NAUSEA Oxycodone HCl (Roxycodone Tab*) 10 mg PO Q4H PRN Reason: PAIN - SEVERE Oxycodone/Acetaminophen (Percocet 5/325 Tab*) 1 tab PO Q4H PRN Reason: PAIN - MILD Oxycodone/Acetaminophen (Percocet 5/325 Tab*) 2 tab PO Q4H PRN Reason: PAIN - MODERATE Oxycodone/Acetaminophen (Percocet 5/325 Tab*) 2 tab PO Q3H PRN Reason: PAIN Pharmacy Profile Note (Coumadin Daily Reminder*) 1 note FOLLOW UP 1700 [facility] Polyethylene Glycol/Electrolytes (Miralax*) 17 gm PO DAILY PRN Reason: Constipation Solifenacin (Vesicare(Nf)) 5 mg PO BEDTIME [facility] Tamsulosin HCl (Flomax Cap*) 0.4 mg PO QPM [facility] Vital Signs 10/21/16 10/21/16 10/21/16 07:53 08:00 08:17 Temperature 98.3 F Pulse Rate 76 Respiratory 20 18 18 Rate Blood Pressure 139/75 (mmHg) O2 Sat by Pulse 95 Oximetry 10/21/16 10/21/16 10/21/16 09:53 11:51 13:12 Temperature 98.3 F Pulse Rate 66 Respiratory 18 18 18 Rate Blood Pressure 156/70 (mmHg) O2 Sat by Pulse 100 Oximetry 10/21/16 10/21/16 10/21/16 15:12 15:53 19:15 Temperature 98.3 F 98.8 F Pulse Rate 71 74 Respiratory 18 16 20 Rate Blood Pressure 129/59 125/71 (mmHg) O2 Sat by Pulse 97 98 Oximetry 10/21/16 10/21/16 10/22/16 22:33 23:46 00:31 Temperature 98.0 F Pulse Rate 72 Respiratory 18 14 18 Rate Blood Pressure 166/80 (mmHg) O2 Sat by Pulse 98 Oximetry 10/22/16 10/22/16 10/22/16 00:42 03:56 04:25 Temperature 98.2 F Pulse Rate 70 68 Respiratory 14 18 Rate Blood Pressure 133/54 113/57 (mmHg) O2 Sat by Pulse 95 96 Oximetry Oxygen Devices in Use Now: None Appearance: NAD, laying in bed Eyes: No Scleral Icterus Respiratory: Symmetrical Chest Expansion and Respiratory Effort, Clear to Auscultation Cardiovascular: NL Sounds; No Murmurs; No JVD, RRR Abdominal: NL Sounds; No Tenderness; No Distention Extremities: - - 2+ edema to right LE and trace edema to left LE Skin: - - Dressing to right LE clean, dry and intact Neurological: Alert and Oriented x 3, NL Muscle Strength and Tone Lines/Tubes/Other Access: Clean, Dry and Intact Peripheral IV - site benign Nutrition: Taking PO's Result Diagrams: 10/21/16 05:53 10/19/16 08:50 Assess/Plan/Problems-Billing Assessment: Mr. Max is an 81 yo male with IDDM, BPH, HLD, CKD, diabetic neuropathy and AAA who is s/p R TKR by Dr Beck on 10/18/16. Hospitalist group consulted for medical co-management. - Patient Problems (1) Status post total knee replacement Code(s): Z96.659 - PRESENCE OF UNSPECIFIED ARTIFICIAL KNEE JOINT SNOMED Code(s ): 8940012798418 Comment: - POD #4 - Management per ortho - HH stable - Continue OT/PT (2) IDDM (insulin dependent diabetes mellitus) Code(s): E11.9 - TYPE 2 DIABETES MELLITUS WITHOUT COMPLICATIONS; Z79.4 - [employer] (CURRENT) USE OF INSULIN SNOMED Code(s): 03732528 Comment: - Last HgbA1c 6.8% - Glucose control improved - Continue Lantus and Lispro (3) HTN (hypertension) Code(s): I10 - ESSENTIAL (PRIMARY) HYPERTENSION SNOMED Code(s): 93301811 Comment: - Normotensive today - Continue losartan (4) BPH (benign prostatic hyperplasia) Code(s): N40.0 - BENIGN PROSTATIC HYPERPLASIA WITHOUT LOWER URINRY TRACT SYMP SNOMED Code(s): 997689334 Comment: - Continue finesteride, Vesicare, and Flomax (5) CKD (chronic kidney disease) Code(s): N18.9 - CHRONIC KIDNEY DISEASE, UNSPECIFIED SNOMED Code(s): 372977140 Comment: - Stage III - Appears near baseline - Avoid nephrotoxic agents (6) HLD (hyperlipidemia) Code(s): E78.5 - HYPERLIPIDEMIA, UNSPECIFIED SNOMED Code(s): 86336870 Comment: - Continue Welchol (7) AAA (abdominal aortic aneurysm) Code(s): I71.4 - ABDOMINAL AORTIC ANEURYSM, WITHOUT RUPTURE SNOMED Code(s): 906968325 (8) Diabetic neuropathy Code(s): E11.40 - TYPE 2 DIABETES MELLITUS WITH DIABETIC NEUROPATHY, UNSP SNOMED Code(s): 043159674 (9) DVT prophylaxis Code(s): IGF3928 - SNOMED Code(s): 230662013 Comment: - Warfarin per Ortho (10) Full code status Code(s): Z78.9 - OTHER SPECIFIED HEALTH STATUS SNOMED Code(s): 626068495 Status and Disposition: Inpatient. Disposition per ortho. Plan for discharge to [facility] Swing bed today. No acute medical concerns
[2016-10-22 07:49] LABS: Hematocrit 31 % (42-52); Hemoglobin 10.7 g/dl (14.0-18.0)
[2016-10-22 07:51] LABS: Comments Flag Yes
[2016-10-22 08:11] VITALS: BP 120/61
[2016-10-22] MEDS: Insulin LISPRO* 1 UNITS UNIT SUBCUT SCH (08:26)
[2016-10-22] MEDS: Magnesium Hydroxide LIQ* 30 ML UDC PO SCH (09:12)
[2016-10-22] MEDS: Insulin GLARGINE(*) 1 UNITS UNIT SUBCUT SCH (09:13)
[2016-10-22] MEDS: Finasteride TAB* 5 MG PO SCH (09:17)
[2016-10-22] MEDS: Docusate CAP* 100 MG PO SCH (09:17)
[2016-10-22] MEDS: Vitamin THERAPEUTIC TAB PO SCH (09:17)
[2016-10-22] MEDS: Losartan TAB* 25 MG PO SCH (09:17)
[2016-10-22] MEDS: COLESEVELAM 625 MG PO SCH (09:20)
--- NOTE | 2016-10-22 10:15 | DS ---
Discharge Summary Date of Admission: 10/18/2016 Date of Discharge: 10/22/2016 Provider: Dr. Namita Beck Principle Diagnosis: RIGHT total knee replacement Secondary Diagnoses: See H&P Principle procedure: Right total knee arthroplasty Consultations: Physical therapy, Occupational therapy, Medicine HPI: Refer to H&P Hospital Course: The patient was admitted on 10/18/2016 and underwent a right total knee arthroplasty. He tolerated the procedure well and there were no complications. The patient had spinal anesthesia and was quite comfortable in the immediate postoperative period. On POD#1 the patients H&H was 11.6/34. Dressing was CDI, he was neurovascularly intact with good sensation distal to right knee. He could demonstrate dorsi and plantar flexion with good strength. Participation in physical and occupational therapy was begun. Pain management was controlled with Percocet and oxycodone. On POD#2 the urinary catheter was discontinued and the patient was able to void spontaneously. The dressing was changed and the wound was found to be benign with minimal drainage and erythema. Vital signs were stable and the patient was afebrile. POD#4 bowel and bladder had normalized and the patient was cleared by physical therapy for safe discharge to a rehabilitation facility. He will continue with the exercises learned with physical therapy and will continue physical therapy at [facility]. At discharge the H&H was 10.7/31, vital signs were stable and the INR value was 1.27. The patient was discharged with a prescription for Coumadin 2 mg. The INR will be monitored on Mondays and and the Coumadin dose adjusted accordingly. The patient will resume the home medications as indicated in the discharge instructions. [place] and/ or sutures will be removed in 10-[address] [facility]. New medications at discharge: Percocet 5/325 mg 1-2 tabs po Q4-6 hours prn pain Coumadin 2 mg 1-3 tablets by mouth at 5 pm daily as directed Colace 100 mg 1 po BID Condition: Stable Disposition: [facility] with PT and PT/INR draws on Tuesday and Follow up: Patient will follow up with Dr. Beck in 3-4 weeks at [facility] Orthopedics Laboratory Results - last 24 hr 10/21/16 10/21/16 10/21/16 12:30 17:16 20:18 Hgb Hct INR (Anticoag Therapy) POC Glucose (mg/dL) 176 H 110 H 115 H 04/14/17 04/14/17 04/14/17 07:29 07:29 08:20 Hgb 10.7 L Hct 31 L INR (Anticoag Therapy) 1.27 H POC Glucose (mg/dL) 79 Vital Signs Temp 98.2 F 10/22/16 07:51 Pulse 68 10/22/16 07:51 Resp 16 10/22/16 09:18 BP 120/61 10/22/16 07:51 Pulse Ox 98 10/22/16 07:51 Intake & Output 10/21/16 10/22/16 10/22/16 18:59 06:59 18:59 Intake Total 1145 860 Output Total 675 1450 Balance 470 -590 Intake: Oral 1145 860 Output: Urine 675 850 Liquid Stool 600 Other: Estimated Void Large # Bowel Movements 1 Estimated Stool Amount Large # Voids 1 Active Medications Generic Name Dose Route Start Last Admin Trade Name Freq PRN Reason Stop Dose Admin Acetaminophen 650 mg 10/18/16 09:48 10/18/16 16:55 Tylenol Tab* PO 650 mg Q4H PRN Administration pain, fever Bisacodyl 10 mg 10/18/16 09:48 Dulcolax Supp* MI DAILY PRN constipation Colesevelam HCl 1,875 mg 10/20/16 21:00 10/22/16 09:20 Welchol(Nf) PO 1,875 mg BID [facility] Administration Dextrose 12.5 gm 10/18/16 14:15 D50w Syringe 50 Ml* IV PUSH .FOR FS < 60 - SS PRN FS < 60 Diphenhydramine HCl 12.5 mg 10/18/16 09:48 Benadryl Iv* IV Q6H PRN PR[facility] Docusate Sodium 100 mg 10/18/16 21:00 10/22/16 09:17 Colace Cap* PO 100 mg BID [facility] Administration Finasteride 5 mg 10/19/16 09:00 10/22/16 09:17 Proscar Tab* PO 5 mg QAM [facility] Administration Insulin Glargine 45 units 10/18/16 21:00 10/22/16 09:13 Lantus(*) SUBCUT Not Given BID PENDING SALE TO [facility] Insulin Human Lispro 0 units 10/19/16 13:28 10/22/16 08:26 Humalog* SUBCUT Not Given AC PENDING SALE TO [facility] Protocol Lactulose 30 ml 10/18/16 09:48 10/21/16 15:15 Lactulose* PO 30 ml Q6H PRN Administration constipation Losartan Potassium 50 mg 10/20/16 09:00 10/22/16 09:17 Cozaar Tab* PO 50 mg QAM [facility] Administration Magnesium Hydroxide 30 ml 10/18/16 21:00 10/22/16 09:12 Milk Of Magnesia Liq* PO Not Given BID [facility] Morphine Sulfate 4 mg 10/18/16 09:48 Morphine Inj (Syringe)* IV Q2H PRN PAIN - BREAKTHROUGH Multivitamins 1 tab 10/19/16 09:00 10/22/16 09:17 Theragran Tab* PO 1 tab DAILY [facility] Administration Ondansetron HCl 4 mg 10/18/16 09:48 Zofran Inj* IV Q6H PRN nausea Ondansetron HCl 4 mg 10/18/16 09:48 10/19/16 09:13 Zofran Tab* PO 4 mg Q6H PRN Administration NAUSEA Oxycodone HCl 10 mg 10/18/16 09:48 10/22/16 09:18 Roxycodone Tab* PO 10 mg Q4H PRN Administration PAIN - SEVERE Oxycodone/Acetaminophen 1 tab 10/18/16 09:48 10/21/16 05:05 Percocet 5/325 Tab* PO 1 tab Q4H PRN Administration PAIN - MILD Oxycodone/Acetaminophen 2 tab 10/18/16 09:48 10/21/16 20:37 Percocet 5/325 Tab* PO 2 tab Q4H PRN Administration PAIN - MODERATE Oxycodone/Acetaminophen 2 tab 10/18/16 22:21 Percocet 5/325 Tab* PO Q3H PRN PAIN Pharmacy Profile Note 1 note 10/19/16 17:00 10/21/16 17:19 Coumadin Daily Reminder* FOLLOW UP 1 note 1700 [facility] Administration Polyethylene Glycol/Electrolytes 17 gm 10/18/16 09:48 Miralax* PO DAILY PRN Constipation Solifenacin 5 mg 10/20/16 21:00 10/21/16 20:39 Vesicare(Nf) PO 5 mg BEDTIME [facility] Administration Tamsulosin HCl 0.4 mg 10/18/16 18:00 10/21/16 17:17 Flomax Cap* PO 0.4 mg QPM [facility] Administration
--- NOTE | 2016-10-22 10:28 | PN ---
Progress Note - Progress Note SOAP: Subjective: [81 y/o male s/p RIght total knee replacement by Dr Beck 10/18/2016. Patient feeling better today, decreased pain and weakness, eager for D/C. H&H stable, VSS overnight. + BM ] Objective: [GEneral- Well appearing, NAD MSK- + DF/PF bilaterally, sensation grossly intact b/l LE's, PT pulsees 2+, +1 pitting edema R LE. Dressing changed, no drainage noted, I C/D/I, mild ecchymosis around incision. Vital Signs Temp 98.2 F 10/22/16 07:51 Pulse 68 10/22/16 07:51 Resp 16 10/22/16 09:18 BP 120/61 10/22/16 07:51 Pulse Ox 98 10/22/16 07:51 Intake & Output 10/21/16 10/22/16 10/22/16 18:59 06:59 18:59 Intake Total 1145 860 Output Total 675 1450 Balance 470 -590 Intake: Oral 1145 860 Output: Urine 675 850 Liquid Stool 600 Other: Estimated Void Large # Bowel Movements 1 Estimated Stool Amount Large # Voids 1 Laboratory Results - last 24 hr 10/21/16 10/21/16 10/21/16 12:30 17:16 20:18 Hgb Hct INR (Anticoag Therapy) POC Glucose (mg/dL) 176 H 110 H 115 H 10/22/16 10/22/16 10/22/16 07:29 07:29 08:20 Hgb 10.7 L Hct 31 L INR (Anticoag Therapy) 1.27 H POC Glucose (mg/dL) 79 ] Assessment: [[81 y/o male s/p RIght total knee replacement by Dr Beck 10/18/2016.] Plan: [- D/C today to [facility] - INR subtheraputic. Coumadin 10mg tonight, lovenox today. - F/U with Dr Beck within 3-4 weeks - Continue PT OT. Rupinder held this AM due to low BG - ] Active Medications Generic Name Dose Route Start Last Admin Trade Name Freq PRN Reason Stop Dose Admin Acetaminophen 650 mg 10/18/16 09:48 10/18/16 16:55 Tylenol Tab* PO 650 mg Q4H PRN Administration pain, fever Bisacodyl 10 mg 10/18/16 09:48 Dulcolax Supp* IL DAILY PRN constipation Colesevelam HCl 1,875 mg 10/20/16 21:00 10/22/16 09:20 Welchol(Nf) PO 1,875 mg BID [facility] Administration Dextrose 12.5 gm 10/18/16 14:15 D50w Syringe 50 Ml* IV PUSH .FOR FS < 60 - SS PRN FS < 60 Diphenhydramine HCl 12.5 mg 10/18/16 09:48 Benadryl Iv* IV Q6H PRN PRURITIS Docusate Sodium 100 mg 10/18/16 21:00 10/22/16 09:17 Colace Cap* PO 100 mg BID [facility] Administration Finasteride 5 mg 10/19/16 09:00 10/22/16 09:17 Proscar Tab* PO 5 mg QAM [facility] Administration Insulin Glargine 45 units 10/18/16 21:00 10/22/16 09:13 Lantus(*) SUBCUT Not Given BID [facility] Insulin Human Lispro 0 units 10/19/16 13:28 10/22/16 08:26 Humalog* SUBCUT Not Given AC [facility] Protocol Lactulose 30 ml 10/18/16 09:48 10/21/16 15:15 Lactulose* PO 30 ml Q6H PRN Administration constipation Losartan Potassium 50 mg 10/20/16 09:00 10/22/16 09:17 Cozaar Tab* PO 50 mg QAM [facility] Administration Magnesium Hydroxide 30 ml 10/18/16 21:00 10/22/16 09:12 Milk Of Magnesia Liq* PO Not Given BID [facility] Morphine Sulfate 4 mg 10/18/16 09:48 Morphine Inj (Syringe)* IV Q2H PRN PAIN - BREAKTHROUGH Multivitamins 1 tab 10/19/16 09:00 10/22/16 09:17 Theragran Tab* PO 1 tab DAILY [facility] Administration Ondansetron HCl 4 mg 10/18/16 09:48 Zofran Inj* IV Q6H PRN nausea Ondansetron HCl 4 mg 10/18/16 09:48 10/19/16 09:13 Zofran Tab* PO 4 mg Q6H PRN Administration NAUSEA Oxycodone HCl 10 mg 10/18/16 09:48 10/22/16 09:18 Roxycodone Tab* PO 10 mg Q4H PRN Administration PAIN - SEVERE Oxycodone/Acetaminophen 1 tab 10/18/16 09:48 10/21/16 05:05 Percocet 5/325 Tab* PO 1 tab Q4H PRN Administration PAIN - MILD Oxycodone/Acetaminophen 2 tab 10/18/16 09:48 10/21/16 20:37 Percocet 5/325 Tab* PO 2 tab Q4H PRN Administration PAIN - MODERATE Oxycodone/Acetaminophen 2 tab 10/18/16 22:21 Percocet 5/325 Tab* PO Q3H PRN PAIN Pharmacy Profile Note 1 note 10/19/16 17:00 10/21/16 17:19 Coumadin Daily Reminder* FOLLOW UP 1 note 1700 [facility] Administration Polyethylene Glycol/Electrolytes 17 gm 10/18/16 09:48 Miralax* PO DAILY PRN Constipation Solifenacin 5 mg 10/20/16 21:00 10/21/16 20:39 Vesicare(Nf) PO 5 mg BEDTIME [facility] Administration Tamsulosin HCl 0.4 mg 10/18/16 18:00 10/21/16 17:17 Flomax Cap* PO 0.4 mg QPM [facility] Administration
== END 2016-10-22 11:40 | disposition swing bed (61) | DRG 470 ==
LOC: OR 06:24 → SSU 09:48
PROVIDERS: ADMIT Orthopaedic Surgery; ATTEND Orthopaedic Surgery
PROC: 0SRC0J9 Replacement of Right Knee Joint with Synthetic Substitute, Cemented, Open Approach (ICD-10-PCS; principal; 2016-10-18 07:30)
DX: M17.11 Unilateral primary osteoarthritis, right knee (principal); E11.40 Type 2 diabetes mellitus with diabetic neuropathy, unspecified; E11.65 Type 2 diabetes mellitus with hyperglycemia; Z79.01 Long term (current) use of anticoagulants; N40.0 Benign prostatic hyperplasia without lower urinary tract symptoms; E78.5 Hyperlipidemia, unspecified; I12.9 Hypertensive chronic kidney disease with stage 1 through stage 4 chronic kidney disease, or unspecified chronic kidney disease; E66.9 Obesity, unspecified; M81.0 Age-related osteoporosis without current pathological fracture; Z79.4 Long term (current) use of insulin; Z88.8 Allergy status to other drugs, medicaments and biological substances; Z82.49 Family history of ischemic heart disease and other diseases of the circulatory system; Z80.9 Family history of malignant neoplasm, unspecified; Z87.891 Personal history of nicotine dependence; Z68.29 Body mass index [BMI] 29.0-29.9, adult; I71.4 Abdominal aortic aneurysm, without rupture; N18.3 Chronic kidney disease, stage 3 (moderate)
CPT/HCPCS: 36415; 80048; 85014; 85018; 85610; 88305; 88311; 94760; A9270-GY; C1776; J0690; J1170; J1644; J2250; J2704; J3010

== ENCOUNTER → 2018-06-14 06:45 | Day surgery (SDC) | payer MEDICARE, BC ==
--- NOTE | 2018-05-23 06:57 | HP ---
CC: Dr. Brittany Pastrana; Dr. Baron Hayden * HISTORY AND PHYSICAL: DATE OF PLANNED ADMISSION AND SURGERY: 06/14/18 HISTORY OF PRESENT ILLNESS: Mr. Santoyo is an 82-year-old white male who is admitted with bladder tumors for cystoscopy, transurethral resection of bladder lesions, and possible placement of right ureteral stent. I have been following Mr. Santoyo for the last 3 years because of bladder outlet obstruction. In November 2011, he had undergone a laser ablation of the prostate in [place], [place]. When I saw him three and a half years ago, he was having increasing obstructive voiding symptoms. At that time, he underwent a cystoscopy, which showed regrowth of the prostate adenoma. There were no suspicious bladder lesions noted at that time. The patient was then started on finasteride and tamsulosin with improvement in his voiding. He was doing well until 3 months ago when he was admitted to [facility] with urosepsis. His blood and urine cultures grew Enterococcus. He was not in urinary retention. He responded well to antibiotics treatment and his symptoms resolved. I saw him in my office for followup evaluation. He was emptying well with a postvoid residual of about 50 cc. His urinalysis was negative. As a work-up of the urosepsis, he had a cystoscopy. The study showed a moderately obstructing prostate. There were several lesions in the bladder that had the appearance of transitional cell carcinoma. Each lesions was about 1 cm in size and were located in the left base and the left lateral bladder wall. There was also a flat hyperemic lesion involving the right ureteral orifice and right trigone that was suspicious for superficial transitional cell carcinoma. The bladder showed trabeculations, but there were no diverticula and no calculi. Because of the above findings, the patient is admitted for transurethral resection of the bladder tumors and possible placement of right ureteral stent. PAST MEDICAL HISTORY AND SYSTEM REVIEW: The patient is diabetic and is followed by Dr. Hayden. For his diabetes, he is maintained on Lantus 30 units twice a day and on Novolin R per schedule. He is hypertensive, on losartan 50 mg daily. He has history of non-rheumatic compensated aortic stenosis and he has stable 4 cm ascending aortic aneurysm. The patient was seen in Cardiology consultation [address] Bond. I am including a copy of his consultation note in the chart. The patient was a smoker of 1 pack per day; however, he stopped 45 years ago. He has 1 to 2 alcoholic drinks per day. He denies any allergies to medications; however, he reports being allergic to LATEX. PHYSICAL EXAMINATION GENERAL: He is a moderately overweight white male, who looks good for his age. VITAL SIGNS: Blood pressure 120/80, pulse of 70, oxygen saturation 98% on room air. LUNGS: Clear. HEART: He has a systolic murmur. ABDOMEN: Soft. No masses. No tenderness and no CVA tenderness. EXTERNAL GENITALIA: Normal. RECTAL: Exam showed an enlarged, but non-suspicious prostate. IMPRESSION: 1. Multiple bladder lesions suspicious for bladder tumor. One of the lesions is involving the right trigone and right ureteral orifice. 2. 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 3. Insulin-dependent diabetes mellitus. 4. Compensated aortic stenosis and stable 4 cm ascending aortic aneurysm. PLAN: Plan is for cystoscopy, transurethral resection of bladder tumors, and possible placement of right ureteral stent. Imaging of his upper tract will be done preoperatively to rule out any upper tract disease. [id number]/[facility] #: [id number] [facility] SYSTEMAngel[facility]
[~2018-06-14 06:45] MED LIST changes: +Buffered Lidocaine 0.9% SYRIN* 5 ML/SYR SYRINGE INTRADERM ONE; -Buffered Lidocaine 1% SYRIN* 3 ML/SYR SYRINGE INTRADERM ONE; +Famotidine IV* 10 MG/ML 2 ML (20 mg) ONE; +Furosemide IV* 10 MG/ML 2 ML VIAL (20 MG) ONE; +Iohexol 180 (CONTRAST) 10 ML SDV IV ONE; +Metoclopramide IV* 5 MG/ML 2 ML VIAL ONE; +Metoclopramide TAB* 10 MG ONE; +Metoclopramide TAB* 10 MG PO ONE; +Morphine PCA ADULT* 5 MG/ML 30 ML ONE; +Morphine VIAL* 10 MG/ML 1 ML VIAL ONE; +Naloxone* 0.4 MG/ML 1 ML VIAL IV PRN; +Ondansetron INJ* 2 MG/ML VIAL IV PRN; +Phenylephrine INJ* 10 MG/ML 1 ML VIAL (10 MG) ONE; +Sodium Chloride 0.9%* 10 ML ONE; +cefTRIAXone(*) 2 GM ADDV.VIAL IVPB ONE; +mitoMYcin PWD* 40 MG in Sterile Water for Inj* 40 ML IRRIGATION ONE; +oxyCODONE SR TAB(*) 10 MG TAB.SR ONE; +oxyCODONE/Acetamin 5/325 MG* TAB ONE
[2018-06-14 11:28] VITALS: BP 132/85
--- NOTE | 2018-06-14 12:48 | OP ---
CC: Dr. Pastrana * DATE OF OPERATION: 06/14/18 - [facility] DATE OF : 33 SURGEON: Roscoe Murillo MD ANESTHESIOLOGIST: Dr. John Rodríguez. ANESTHESIA: General. PRE-OP DIAGNOSIS: Bladder lesions (right and left trigone). POST-OP DIAGNOSES: 1. Bladder lesions trigone, pending pathology. 2. Hypervascular prostatic urethra. OPERATIVE PROCEDURE: 1. Cystoscopy. 2. Fulguration of bleeders in prostatic urethra. 3. Excisional biopsies and fulgurations of lesions of right and left trigone. INDICATION FOR PROCEDURE: Mr. Santoyo is an 82-year-old white male who has bladder outlet obstruction and history of urinary tract infection who was worked up in the office for microscopic hematuria and was noted to have lesions in the left and right trigone that were suspicious for transitional cell carcinoma. The patient is brought in for excisional biopsies and fulguration. PATHOLOGY: At cystoscopy, the penile and bulbar urethrae looked normal. The prostatic urethra was open consistent with history of laser prostatectomy. There was however a significant degree of hypervascularity of the proximal half of the prostatic urethra. There was bleeding from the prostatic urethra upon instrumentation. Examination of the bladder showed normal ureteral orifices. There were flat lesions adjacent to the right trigone suspicious for either early transitional cell carcinoma or carcinoma in situ. There was a papillary lesion measuring about 1 cm just lateral to the left ureteral orifice. The rest of the bladder wall looked normal. There were no other suspicious lesions seen. Moderate degree of trabeculations were noted. DESCRIPTION OF PROCEDURE: After successful general anesthesia, the patient was placed in the lithotomy position and was prepped and draped for a cystoscopy. Cystoscopy was performed. The bladder was carefully inspected and the above findings were noted. Because of continuous oozing of blood from the prostatic urethra at the time of the instrumentation, decision was made to fulgurate the prominent veins in the prostatic urethra. The resectoscope was introduced inside the bladder and fulguration of the whole proximal half of the prostatic urethra was performed controlling all the oozing. The resectoscope was then introduced inside the bladder. The tumor in the left trigone was then resected down to muscle. The site of the resection was fulgurated with the coagulation current. The cystoscope was then introduced inside the bladder. Using the biopsy forceps , several biopsies were obtained from the lesions in the right trigone adjacent to the orifice. The sites of the biopsies were then fulgurated with the Bugbee electrode. Both ureteral orifices were intact at the completion of the procedure, and there was no indication to place ureteral stents on either side. After making sure there was very good hemostasis and no residual suspicious lesions, the cystoscope was removed and a size 20-Belizean Ortiz catheter was passed inside the bladder and the balloon inflated with 10 cc of water. The patient tolerated the procedure well and left the operating room in good condition. The plan is to give the patient mitomycin C in the PACU to decrease the risk of recurrent bladder tumors. [id number]/[facility] #: [id number] TU
== END | disposition home or self-care (01) ==
LOC: OR 06:45
PROVIDERS: ATTEND Urology
DX: C67.0 Malignant neoplasm of trigone of bladder (principal); R31.29 Other microscopic hematuria; N40.1 Benign prostatic hyperplasia with lower urinary tract symptoms; N13.8 Other obstructive and reflux uropathy; Z87.440 Personal history of urinary (tract) infections; E11.9 Type 2 diabetes mellitus without complications; I71.4 Abdominal aortic aneurysm, without rupture; Z79.4 Long term (current) use of insulin; I10 Essential (primary) hypertension; I35.0 Nonrheumatic aortic (valve) stenosis; M19.90 Unspecified osteoarthritis, unspecified site
CPT/HCPCS: 88305; A9270-GY; J0696; J1940; J2270; J2765; J9280

== ENCOUNTER 2020-03-27 01:03 | Inpatient (IN) ==
[2020-03-27] MEDS ORDERED: Lidocaine 1% MPF 5 ML VIAL ONE (01:55)
[2020-03-27] MEDS ORDERED: Pantoprazole VIAL 40 MG VIAL IV ONE (03:46)
[2020-03-27] MEDS ORDERED: Ondansetron 4 mg VIAL 2 MG/ML 2 ml VIAL IV PRN (03:46)
[2020-03-27 03:47] LABS: Anion Gap 7 mmol/L (2-11); CO2 Carbon Dioxide 18 mmol/L (22-32); Chloride 114 mmol/L (101-111); Potassium 4.3 mmol/L (3.5-5.0); Sodium 139 mmol/L (135-145)
[2020-03-27 03:48] LABS: ALT 11 U/L (7-52); AST 17 U/L (13-39); Albumin 2.8 g/dL (3.2-5.2); Albumin/Globulin Ratio 1.6 (1-3); Alkaline Phosphatase 47 U/L (34-104); BUN/Creatinine Ratio 36.1 (8-20); Blood Urea Nitrogen 66 mg/dL (6-24); Calcium 7.7 mg/dL (8.6-10.3); EGFR African American 42.8 (>60); EGFR Non-African American 35.4 (>60); Globulin 1.8 g/dL (2-4); Glucose 209 mg/dL (70-100); Total Protein 4.6 g/dL (6.4-8.9)
[2020-03-27 03:50] LABS: Troponin I 0.03 ng/mL (<0.03)
[2020-03-27 03:51] LABS: Hematocrit 18 % (42-52); Hemoglobin 6.1 g/dL (14.0-18.0); Mean Corpuscular Volume 110 fL (80-94); Red Blood Count 1.64 10^6 /uL (4.18-5.48); White Blood Count 5.8 10^3/uL (3.5-10.8)
[2020-03-27 03:52] LABS: ABS Eosinophils 0.1 10^3/ul (0-0.6); ABS Monocytes 0.4 10^3/ul (0-0.8); ABS Neutrophils 4.2 10^3/ul (1.5-7.7); Mean Corpuscular HGB Conc 34 g/dL (31-36); Mean Corpuscular Hemoglobin 37 pg (27-31); Mean Platelet Volume 9.6 fL (7.4-10.4); Platelet Count 84 10^3/uL (150-450); Red Cell Distribution Width 15 % (10-15)
[2020-03-27 03:53] LABS: Eosinophil % 1.2 %; Lymphocyte % 17.9 %; Nucleated Red Blood Cells % 0.1
[2020-03-27 03:55] LABS: Activated Partial Thrombo Time 28.1 seconds (26.0-38.0); INR 1.36 (0.82-1.09)
[2020-03-27] MEDS ORDERED: Dextrose 50% Syringe 50 ml 25 GM/50 ML SYRINGE IV PUSH PRN (03:58)
[2020-03-27] MEDS: Pantoprazole 80 mg in NS BAG 80 MG/250 ML BAG IV SCH ×2 (04:44→17:14)
[2020-03-27] MEDS ORDERED: Iodixanol (CONTRAST) 320 MG/ML 100 ML SDV IV ONE (04:47)
[2020-03-27] MEDS: NS 0.9% 1000 ml BAG 1,000 ML IV SCH ×2 (06:00→20:37)
[2020-03-27 06:10] LABS: Troponin I 0.03 ng/mL (<0.03)
[2020-03-27 06:31] LABS: INR 1.36 (0.82-1.09)
[2020-03-27 06:35] LABS: BUN/Creatinine Ratio 36.2 (8-20); Calcium 7.9 mg/dL (8.6-10.3); EGFR African American 45.3 (>60); EGFR Non-African American 37.5 (>60); Potassium 4.7 mmol/L (3.5-5.0)
[2020-03-27 06:56] LABS: ABS Monocytes 0.3 10^3/ul (0-0.8); ABS Neutrophils 4.3 10^3/ul (1.5-7.7); Eosinophil % 0.4 %; Hematocrit 18 % (42-52); Hemoglobin 6.3 g/dL (14.0-18.0); Lymphocyte % 17.1 %; Mean Corpuscular HGB Conc 35 g/dL (31-36); Mean Corpuscular Hemoglobin 37 pg (27-31); Mean Corpuscular Volume 107 fL (80-94); Mean Platelet Volume 9.4 fL (7.4-10.4); Platelet Count 73 10^3/uL (150-450); Red Cell Distribution Width 18 % (10-15); White Blood Count 5.6 10^3/uL (3.5-10.8)
[2020-03-27 07:49] LABS: Troponin I 0.03 ng/mL (<0.03)
[2020-03-27] MEDS: Multivitamins/Minerals TAB PO SCH (07:50)
[2020-03-27 10:48] LABS: Troponin I 0.03 ng/mL (<0.03)
[2020-03-27 12:03] LABS: Hematocrit 22 % (42-52); Hemoglobin 7.2 g/dL (14.0-18.0)
[2020-03-27] MEDS ORDERED: Midazolam 10 mg/10 ml VIAL 1 mg/ml 10 ml VIAL (10 mg) ONE (15:13)
[2020-03-27] MEDS ORDERED: fentaNYL 100 mcg/2 ml 50 MCG/ML VIAL ONE (15:13)
[2020-03-27 18:31] LABS: Hematocrit 23 % (42-52); Hemoglobin 7.4 g/dL (14.0-18.0)
[2020-03-27] MEDS: Pantoprazole VIAL 40 MG VIAL IV SCH (20:37)
[2020-03-28] MEDS: NS 0.9% 1000 ml BAG 1,000 ML IV SCH ×2 (07:00→17:55)
[2020-03-28 07:06] LABS: Hematocrit 20 % (42-52); Hemoglobin 6.7 g/dL (14.0-18.0); Mean Corpuscular HGB Conc 34 g/dL (31-36); Mean Corpuscular Hemoglobin 35 pg (27-31); Mean Corpuscular Volume 103 fL (80-94); Mean Platelet Volume 8.8 fL (7.4-10.4); Platelet Count 77 10^3/uL (150-450); Red Cell Distribution Width 22 % (10-15)
[2020-03-28 07:19] LABS: BUN/Creatinine Ratio 25.8 (8-20); EGFR African American 48.9 (>60); EGFR Non-African American 40.4 (>60)
[2020-03-28] MEDS: Pantoprazole VIAL 40 MG VIAL IV SCH ×2 (08:15→21:43)
[2020-03-28] MEDS: Multivitamins/Minerals TAB PO SCH (08:15)
[2020-03-28 15:07] LABS: Hematocrit 24 % (42-52)
[2020-03-28 18:18] LABS: Hematocrit 24 % (42-52)
[2020-03-28 22:07] LABS: Hematocrit 22 % (42-52); Hemoglobin 7.7 g/dL (14.0-18.0)
[2020-03-29] MEDS: NS 0.9% 1000 ml BAG 1,000 ML IV SCH ×2 (06:21→18:25)
[2020-03-29 06:50] LABS: ABS Eosinophils 0.1 10^3/ul (0-0.6); ABS Lymphocytes 0.9 10^3/ul (1.0-4.8); ABS Monocytes 0.3 10^3/ul (0-0.8); ABS Neutrophils 1.9 10^3/ul (1.5-7.7); Eosinophil % 2.7 %; Hematocrit 24 % (42-52); Hemoglobin 8.3 g/dL (14.0-18.0); Lymphocyte % 28.9 %; Mean Corpuscular HGB Conc 35 g/dL (31-36); Mean Corpuscular Hemoglobin 35 pg (27-31); Mean Corpuscular Volume 99 fL (80-94); Mean Platelet Volume 9.1 fL (7.4-10.4); Nucleated Red Blood Cells % 0.1; Platelet Count 66 10^3/uL (150-450); Red Blood Count 2.41 10^6 /uL (4.18-5.48); Red Cell Distribution Width 23 % (10-15); White Blood Count 3.2 10^3/uL (3.5-10.8)
[2020-03-29 06:56] LABS: Calcium 8.1 mg/dL (8.6-10.3); EGFR African American 52.6 (>60); EGFR Non-African American 43.5 (>60); Potassium 3.9 mmol/L (3.5-5.0)
[2020-03-29] MEDS: Multivitamins/Minerals TAB PO SCH (08:30)
[2020-03-29] MEDS: Pantoprazole VIAL 40 MG VIAL IV SCH ×2 (08:30→21:21)
[2020-03-29] MEDS ORDERED: Furosemide 20 mg/2 ml IV VIAL IV ONE (12:48)
[2020-03-29 18:10] LABS: Urine Appearance Clear; Urine Bilirubin Negative (Negative); Urine Blood Negative (Negative); Urine Color Straw; Urine Glucose 1+(50 mg/dL) (Negative); Urine Ketones Negative (Negative); Urine Nitrite Negative (Negative); Urine Protein Negative (Negative); Urine Specific Gravity 1.006 (1.010-1.030); Urine Urobilinogen Negative (Negative)
[2020-03-30] MEDS: NS 0.9% 1000 ml BAG 1,000 ML IV SCH (04:56)
[2020-03-30] MEDS ORDERED: Furosemide 20 mg/2 ml IV VIAL IV SCH (08:00)
[2020-03-30] MEDS: Pantoprazole VIAL 40 MG VIAL IV SCH ×2 (08:09→20:08)
[2020-03-30] MEDS: Furosemide 20 mg/2 ml IV VIAL IV SCH (08:10)
[2020-03-30] MEDS: Multivitamins/Minerals TAB PO SCH (08:12)
[2020-03-30 08:14] LABS: BUN/Creatinine Ratio 13.3 (8-20); Calcium 7.9 mg/dL (8.6-10.3); EGFR African American 53.8 (>60); EGFR Non-African American 44.5 (>60); Potassium 3.6 mmol/L (3.5-5.0)
[2020-03-30 08:23] LABS: Hematocrit 24 % (42-52); Hemoglobin 8.3 g/dL (14.0-18.0); Mean Corpuscular HGB Conc 35 g/dL (31-36); Mean Corpuscular Hemoglobin 35 pg (27-31); Mean Corpuscular Volume 99 fL (80-94); Mean Platelet Volume 9.1 fL (7.4-10.4); Platelet Count 65 10^3/uL (150-450); Red Blood Count 2.42 10^6 /uL (4.18-5.48); Red Cell Distribution Width 22 % (10-15); White Blood Count 2.9 10^3/uL (3.5-10.8)
[2020-03-31 05:53] LABS: Hematocrit 25 % (42-52); Hemoglobin 8.2 g/dL (14.0-18.0)
[2020-03-31] MEDS: Multivitamins/Minerals TAB PO SCH (08:14)
[2020-03-31] MEDS: Furosemide 20 mg/2 ml IV VIAL IV SCH (08:15)
[2020-03-31 12:27] VITALS: BP 120/60
== END 2020-03-31 14:50 | disposition home health service (06) | DRG 377 ==
LOC: ED 03:15 → MEDTELE 04:28
PROVIDERS: ADMIT Nurse Practitioner Family; ATTEND Internal Medicine

== ENCOUNTER 2021-04-02 11:14 | Observation (INO) ==
[~2021-04-02 11:14] MED LIST changes: -Buffered Lidocaine 0.9% SYRIN* 5 ML/SYR SYRINGE INTRADERM ONE; +DOXORUBICIN SCH; +Dextrose 50% Syringe 50 ml 25 GM/50 ML SYRINGE IV PUSH PRN; -Famotidine IV* 10 MG/ML 2 ML (20 mg) IV ONE; -Famotidine IV* 10 MG/ML 2 ML (20 mg) ONE; -Furosemide IV* 10 MG/ML 2 ML VIAL (20 MG) ONE; +Insulin GLARGINE 100 un/ml 10 ml VIAL SUBCUT SCH; -Iohexol 180 (CONTRAST) 10 ML SDV IV ONE; -Metoclopramide IV* 5 MG/ML 2 ML VIAL IV SLOW PU ONE; -Metoclopramide IV* 5 MG/ML 2 ML VIAL ONE; -Metoclopramide TAB* 10 MG ONE; -Metoclopramide TAB* 10 MG PO ONE; -Morphine PCA ADULT* 5 MG/ML 30 ML ONE; -Morphine VIAL* 10 MG/ML 1 ML VIAL ONE; -Naloxone* 0.4 MG/ML 1 ML VIAL IV PRN; -Ondansetron INJ* 2 MG/ML VIAL IV PRN; -Phenylephrine INJ* 10 MG/ML 1 ML VIAL (10 MG) ONE; -Sodium Chloride 0.9%* 10 ML ONE; -cefTRIAXone(*) 2 GM ADDV.VIAL IVPB ONE; -mitoMYcin PWD* 40 MG in Sterile Water for Inj* 40 ML IRRIGATION ONE; -oxyCODONE SR TAB(*) 10 MG TAB.SR ONE; -oxyCODONE/Acetamin 5/325 MG* TAB ONE
[2021-04-02] MEDS ORDERED: metroNIDAZOLE IV 500 MG/100ML 100 ML IVPB ONE (12:00)
[2021-04-02] MEDS ORDERED: DOXORUBICIN ONE (12:00)
[2021-04-02] MEDS ORDERED: Dexamethasone IV 4 MG/ML VIAL 1 ml VIAL IV SLOW PU ONE (12:00)
[2021-04-02] MEDS ORDERED: Perflutren Lipid Microsphere 3 ML VIAL ONE (12:08)
[2021-04-02 12:09] LABS: ABS Eosinophils 0.1 10^3/ul (0-0.6); ABS Lymphocytes 0.5 10^3/ul (1.0-4.8); ABS Monocytes 0.3 10^3/ul (0-0.8); ABS Neutrophils 3.8 10^3/ul (1.5-7.7); Eosinophil % 1.3 %; Hematocrit 36 % (42-52); Hemoglobin 12.4 g/dL (14.0-18.0); Mean Corpuscular HGB Conc 34 g/dL (31-36); Mean Corpuscular Hemoglobin 36 pg (27-31); Mean Corpuscular Volume 106 fL (80-94); Mean Platelet Volume 8.2 fL (7.4-10.4); Nucleated Red Blood Cells % 0.1; Platelet Count 102 10^3/uL (150-450); Red Blood Count 3.43 10^6 /uL (4.18-5.48); Red Cell Distribution Width 15 % (10-15); White Blood Count 4.6 10^3/uL (3.5-10.8)
[2021-04-02 12:12] LABS: EGFR African American 43.5 (>60); Potassium 4.1 mmol/L (3.5-5.0)
[2021-04-02 12:22] LABS: Activated Partial Thrombo Time 36.2 seconds (26.0-38.0); INR 1.2 (0.86-1.15)
[2021-04-02] MEDS ORDERED: Ondansetron 4 mg VIAL 2 MG/ML 2 ml VIAL ONE (12:27)
[2021-04-02] MEDS ORDERED: oxyCODONE SR 10 mg TAB ONE (12:27)
[2021-04-02] MEDS ORDERED: Nitro 2% OINT (Nitroglycerin) 1 INCH/PAK ONE (12:28)
[2021-04-02] MEDS ORDERED: Lidocaine 1% VIAL 10 MG/ML VIAL ONE (13:04)
[2021-04-02] MEDS ORDERED: Iohexol 350 (CONTRAST) 200 ML MDV IV ONE (13:04)
[2021-04-02] MEDS ORDERED: Heparin 2 UNITS/ML IVPREMIX 1,000 UNIT/500 ML BAG IV ONE ×2 (13:04→13:18)
[2021-04-02] MEDS ORDERED: Iodixanol 320 (CONTRAST) 100 ML SDV ONE (13:04)
[2021-04-02] MEDS ORDERED: Heparin 1,000 UNIT/ML 10 ml (10,000 UNITS) CATHLAB/DIALYSIS ONE (13:05)
[2021-04-02] MEDS ORDERED: nitroGLYCERIN DRIP 25,000 MCG/250 ML BTL ONE (13:05)
[2021-04-02] MEDS ORDERED: VERAPAMIL 2.5 MG/ML 2 ML VIAL ** 5 mg/2 ml ONE (13:05)
[2021-04-02] MEDS ORDERED: fentaNYL 250 mcg/5 ml 50 MCG/ML 5 ml VIAL (250 MCG) ONE (13:06)
[2021-04-02] MEDS ORDERED: Midazolam 5 mg/5 ml VIAL 1 mg/ml 5 ml VIAL (5 mg) ONE (13:06)
[2021-04-02] MEDS ORDERED: HYDROmorphone PCA 20 MG/20 ML PCA.SYRING PCA SCH (14:00)
[2021-04-02] MEDS ORDERED: Naloxone 0.4 mg VIAL 0.4 mg/ml 1 ml VIAL IV PUSH PRN (14:00)
[2021-04-02] MEDS ORDERED: NS 0.9% 1000 ml BAG 1,000 ML IV SCH (15:00)
[2021-04-02] MEDS ORDERED: Morphine 2 MG/ML SYRINGE IV PRN (18:53)
[2021-04-02] MEDS: Ondansetron 4 mg VIAL 2 MG/ML 2 ml VIAL IV SCH (20:31)
[2021-04-02] MEDS: Multivitamins/Minerals TAB PO SCH (20:31)
[2021-04-02] MEDS: Insulin GLARGINE 100 un/ml 10 ml VIAL SUBCUT SCH (20:31)
[2021-04-03] MEDS: Ondansetron 4 mg VIAL 2 MG/ML 2 ml VIAL IV SCH ×2 (02:18→08:29)
[2021-04-03 06:42] LABS: Albumin 3.1 g/dL (3.2-5.2); Albumin/Globulin Ratio 1.1 (1-3); Calcium 8.1 mg/dL (8.6-10.3); EGFR African American 46.5 (>60); EGFR Non-African American 38.4 (>60); Globulin 2.8 g/dL (2-4); Potassium 4.6 mmol/L (3.5-5.0); Total Bilirubin 1.2 mg/dL (0.2-1.0); Total Protein 5.9 g/dL (6.4-8.9)
[2021-04-03 06:49] LABS: ABS Lymphocytes 0.3 10^3/ul (1.0-4.8); ABS Monocytes 0.1 10^3/ul (0-0.8); ABS Neutrophils 3.4 10^3/ul (1.5-7.7); Eosinophil % 0.1 %; Hematocrit 34 % (42-52); Hemoglobin 11.4 g/dL (14.0-18.0); Lymphocyte % 8.3 %; Mean Corpuscular HGB Conc 33 g/dL (31-36); Mean Corpuscular Hemoglobin 36 pg (27-31); Mean Corpuscular Volume 107 fL (80-94); Mean Platelet Volume 9.3 fL (7.4-10.4); Nucleated Red Blood Cells % 0.1; Platelet Count 63 10^3/uL (150-450); Red Cell Distribution Width 14 % (10-15); White Blood Count 3.9 10^3/uL (3.5-10.8)
[2021-04-03] MEDS: Multivitamins/Minerals TAB PO SCH (08:22)
[2021-04-03] MEDS: Insulin GLARGINE 100 un/ml 10 ml VIAL SUBCUT SCH (08:23)
[2021-04-03] MEDS ORDERED: Cholecalciferol (VIT D3) 1,000 unit TAB PO SCH (09:00)
[2021-04-03] MEDS ORDERED: NON FORMULARY MED (Multivitamin Tablet) PO SCH (09:00)
[2021-04-03] MEDS ORDERED: NIACIN 100 MG PO SCH (09:00)
[2021-04-03 11:33] VITALS: BP 117/54
[2021-04-04] MEDS ORDERED: [UNRECOGNIZED DRUG - OTHER] PO SCH (09:00)
[2021-04-04] MEDS ORDERED: FERROUS SULFATE 27 MG PO SCH (09:00)
== END 2021-04-03 13:20 | disposition home or self-care (01) ==
LOC: SSU 11:14 → CHICATH 11:14
PROVIDERS: ADMIT Internal Medicine Hematology & Oncology; ATTEND Radiology Diagnostic Radiology

== ENCOUNTER 2021-06-18 02:01 | Inpatient (IN) ==
[2021-06-18 03:35] LABS: ABS Lymphocytes 0.4 10^3/ul (1.0-4.8); ABS Monocytes 0.3 10^3/ul (0-0.8); ABS Neutrophils 4.6 10^3/ul (1.5-7.7); Eosinophil % 0.8 %; Hematocrit 36 % (42-52); Hemoglobin 11.9 g/dL (14.0-18.0); Lymphocyte % 7.5 %; Mean Corpuscular HGB Conc 34 g/dL (31-36); Mean Corpuscular Hemoglobin 35 pg (27-31); Mean Corpuscular Volume 104 fL (80-94); Mean Platelet Volume 9.1 fL (7.4-10.4); Platelet Count 72 10^3/uL (150-450); Red Blood Count 3.43 10^6 /uL (4.18-5.48); Red Cell Distribution Width 15 % (10-15); White Blood Count 5.4 10^3/uL (3.5-10.8)
[2021-06-18 03:42] LABS: Activated Partial Thrombo Time 32.5 seconds (26.0-38.0); INR 1.36 (0.86-1.15)
[2021-06-18 03:46] LABS: ALT 23 U/L (7-52); AST 46 U/L (13-39); Albumin 3.7 g/dL (3.2-5.2); Albumin/Globulin Ratio 1.1 (1-3); Alkaline Phosphatase 108 U/L (35-149); Anion Gap 8 mmol/L (2-11); Blood Urea Nitrogen 26 mg/dL (6-24); C Reactive Protein 20.69 mg/L (<8.01); CO2 Carbon Dioxide 24 mmol/L (22-32); Calcium 9.2 mg/dL (8.6-10.3); Chloride 101 mmol/L (101-111); Globulin 3.3 g/dL (2-4); Glucose 126 mg/dL (70-100); Potassium 3.6 mmol/L (3.5-5.0); Sodium 133 mmol/L (135-145); eGFR CKD-EPI 32.7 (>60)
[2021-06-18 03:48] LABS: Rapid COVID-19 Molecular Undetected (Undetected)
[2021-06-18 03:49] LABS: Influenza A Molecular Negative (Negative); Influenza B Molecular Negative (Negative)
[2021-06-18 03:50] LABS: Troponin I 0.05 ng/mL (<0.03)
[2021-06-18] MEDS ORDERED: Lactated Ringers 1000 ml BAG IV.FLUID IV ONE (04:18)
[2021-06-18] MEDS ORDERED: Aztreonam 2 GM in NS 0.9% 100 ml BAG 100 ML IVPB ONE (05:14)
[2021-06-18] MEDS ORDERED: NS 0.9% 100 ml BAG 0 ML ONE (05:21)
[2021-06-18 05:29] LABS: Urine Appearance Cloudy; Urine Bilirubin Negative (Negative); Urine Blood Negative (Negative); Urine Color Amber; Urine Glucose Negative (Negative); Urine Ketones Trace (Negative); Urine Nitrite Negative (Negative); Urine Protein 2+(100 mg/dL) (Negative); Urine Urobilinogen Negative (Negative)
[2021-06-18 05:39] LABS: Urine Bacteria Absent (Absent); Urine Red Blood Cell Trace(0-2/hpf) (Absent); Urine Squamous Epithelial Cell Present (Absent); Urine White Blood Cell 3+(>20/hpf) (Absent)
[2021-06-18] MEDS ORDERED: Dextrose 50% Syringe 50 ml 25 GM/50 ML SYRINGE IV PUSH PRN (06:46)
[2021-06-18] MEDS ORDERED: Lactated Ringers 1000 ml BAG 1,000 ML IV SCH (07:00)
[2021-06-18] MEDS ORDERED: Pantoprazole VIAL 40 MG VIAL IV SCH (07:30)
[2021-06-18 08:14] LABS: Rapid COVID-19 Molecular Undetected (Undetected)
[2021-06-18 08:15] LABS: Urine Appearance Cloudy; Urine Bilirubin Negative (Negative); Urine Blood Negative (Negative); Urine Color Amber; Urine Glucose Negative (Negative); Urine Ketones Trace (Negative); Urine Nitrite Negative (Negative); Urine Protein 2+(100 mg/dL) (Negative); Urine Urobilinogen Negative (Negative)
[2021-06-18 08:19] LABS: Urine Bacteria Absent (Absent); Urine Red Blood Cell Trace(0-2/hpf) (Absent); Urine Squamous Epithelial Cell Present (Absent); Urine White Blood Cell 3+(>20/hpf) (Absent)
[2021-06-18 08:24] LABS: Troponin I 0.05 ng/mL (<0.03)
[2021-06-18 08:26] LABS: Urine Creatinine Concentration 191.02 mg/dL
[2021-06-18] MEDS ORDERED: Multivitamins/Mins AREDS2 (NF) CAP PO SCH (09:00)
[2021-06-18] MEDS: Insulin GLARGINE 100 un/ml 10 ml VIAL SUBCUT SCH ×2 (09:30→21:54)
[2021-06-18] MEDS: Vitamin THERAPEUTIC TAB PO SCH (09:30)
[2021-06-18] MEDS: Cholecalciferol (VIT D3) 1,000 unit TAB PO SCH (09:38)
[2021-06-18] MEDS: NIACIN 100 MG PO SCH (09:38)
[2021-06-18] MEDS: Nystatin TOP POWDER 15 GM BTL TOPICAL SCH ×3 (09:38→21:54)
[2021-06-18 10:12] LABS: Hematocrit 30 % (42-52); Hemoglobin 9.9 g/dL (14.0-18.0)
[2021-06-18 10:36] LABS: Troponin I 0.05 ng/mL (<0.03)
[2021-06-18] MEDS ORDERED: Heparin 5000 UNITS/ML 1 mL VIAL SUBCUT SCH (14:00)
[2021-06-18 16:30] LABS: Hematocrit 31 % (42-52); Hemoglobin 10.5 g/dL (14.0-18.0)
[2021-06-18] MEDS: Cefepime 2 GM in Dextrose 2 GM/50 ML BAG IV SCH (17:29)
[2021-06-18 21:31] LABS: Hematocrit 31 % (42-52); Hemoglobin 10.4 g/dL (14.0-18.0)
[2021-06-18] MEDS: Multivitamins/Mins AREDS2 (NF) CAP PO SCH (21:54)
[2021-06-19 05:57] LABS: ABS Lymphocytes 0.4 10^3/ul (1.0-4.8); ABS Monocytes 0.3 10^3/ul (0-0.8); ABS Neutrophils 2.7 10^3/ul (1.5-7.7); Eosinophil % 0.7 %; Hematocrit 29 % (42-52); Hemoglobin 9.7 g/dL (14.0-18.0); Lymphocyte % 12.7 %; Mean Corpuscular HGB Conc 34 g/dL (31-36); Mean Corpuscular Hemoglobin 35 pg (27-31); Mean Corpuscular Volume 104 fL (80-94); Mean Platelet Volume 9.8 fL (7.4-10.4); Nucleated Red Blood Cells % 0.1; Platelet Count 52 10^3/uL (150-450); Red Blood Count 2.79 10^6 /uL (4.18-5.48); Red Cell Distribution Width 15 % (10-15); White Blood Count 3.5 10^3/uL (3.5-10.8)
[2021-06-19 06:33] LABS: Calcium 7.9 mg/dL (8.6-10.3); Potassium 3.6 mmol/L (3.5-5.0); eGFR CKD-EPI 31.3 (>60)
[2021-06-19 07:02] LABS: RBC Morphology Normal (Normal)
[2021-06-19] MEDS: Cefepime 2 GM in Dextrose 2 GM/50 ML BAG IV SCH (08:14)
[2021-06-19] MEDS: Cholecalciferol (VIT D3) 1,000 unit TAB PO SCH (08:21)
[2021-06-19] MEDS: Vitamin THERAPEUTIC TAB PO SCH (08:23)
[2021-06-19] MEDS: NIACIN 100 MG PO SCH (08:24)
[2021-06-19] MEDS: Nystatin TOP POWDER 15 GM BTL TOPICAL SCH ×3 (08:24→21:23)
[2021-06-19] MEDS: Insulin GLARGINE 100 un/ml 10 ml VIAL SUBCUT SCH ×2 (10:18→21:23)
[2021-06-19] MEDS ORDERED: Lactated Ringers 1000 ml BAG 1,000 ML IV SCH (11:00)
[2021-06-19] MEDS: Multivitamins/Mins AREDS2 (NF) CAP PO SCH ×2 (11:57→21:33)
[2021-06-19] MEDS ORDERED: NS 0.9% 1000 ml BAG 1,000 ML IV SCH (16:30)
[2021-06-19] MEDS: cefTRIAXone 1 gm/50 mL NS BAG 1 GM/50 ML BAG IVPB SCH (21:33)
[2021-06-20 07:52] LABS: ABS Eosinophils 0.1 10^3/ul (0-0.6); ABS Lymphocytes 0.4 10^3/ul (1.0-4.8); ABS Monocytes 0.2 10^3/ul (0-0.8); ABS Neutrophils 1.3 10^3/ul (1.5-7.7); Eosinophil % 3.4 %; Hematocrit 29 % (42-52); Hemoglobin 9.6 g/dL (14.0-18.0); Lymphocyte % 19.7 %; Mean Corpuscular HGB Conc 34 g/dL (31-36); Mean Corpuscular Hemoglobin 35 pg (27-31); Mean Corpuscular Volume 105 fL (80-94); Nucleated Red Blood Cells % 0.2; Platelet Count 47 10^3/uL (150-450); Red Blood Count 2.72 10^6 /uL (4.18-5.48); Red Cell Distribution Width 15 % (10-15)
[2021-06-20 08:06] LABS: Albumin 2.7 g/dL (3.2-5.2); C Reactive Protein 98.54 mg/L (<8.01); Calcium 8.1 mg/dL (8.6-10.3); Globulin 2.8 g/dL (2-4); Potassium 3.5 mmol/L (3.5-5.0); Total Bilirubin 0.9 mg/dL (0.2-1.0); Total Protein 5.5 g/dL (6.4-8.9); eGFR CKD-EPI 34.6 (>60)
[2021-06-20] MEDS: Vitamin THERAPEUTIC TAB PO SCH (10:31)
[2021-06-20] MEDS: Cholecalciferol (VIT D3) 1,000 unit TAB PO SCH (10:32)
[2021-06-20] MEDS: Insulin GLARGINE 100 un/ml 10 ml VIAL SUBCUT SCH ×2 (10:33→22:44)
[2021-06-20] MEDS: NIACIN 100 MG PO SCH (10:35)
[2021-06-20] MEDS: Nystatin TOP POWDER 15 GM BTL TOPICAL SCH ×3 (10:35→22:44)
[2021-06-20] MEDS: Multivitamins/Mins AREDS2 (NF) CAP PO SCH ×2 (12:05→22:44)
[2021-06-20] MEDS: cefTRIAXone 1 gm/50 mL NS BAG 1 GM/50 ML BAG IVPB SCH (22:00)
[2021-06-21 05:40] LABS: ABS Eosinophils 0.1 10^3/ul (0-0.6); ABS Lymphocytes 0.5 10^3/ul (1.0-4.8); ABS Monocytes 0.2 10^3/ul (0-0.8); Eosinophil % 5.4 %; Hematocrit 28 % (42-52); Hemoglobin 9.6 g/dL (14.0-18.0); Lymphocyte % 27.8 %; Mean Corpuscular HGB Conc 34 g/dL (31-36); Mean Corpuscular Hemoglobin 35 pg (27-31); Mean Corpuscular Volume 104 fL (80-94); Mean Platelet Volume 10.1 fL (7.4-10.4); Platelet Count 40 10^3/uL (150-450); Red Blood Count 2.71 10^6 /uL (4.18-5.48); Red Cell Distribution Width 15 % (10-15); White Blood Count 1.9 10^3/uL (3.5-10.8)
[2021-06-21 05:49] LABS: Albumin 2.6 g/dL (3.2-5.2); C Reactive Protein 63.89 mg/L (<8.01); Calcium 8.1 mg/dL (8.6-10.3); Globulin 2.7 g/dL (2-4); Potassium 3.5 mmol/L (3.5-5.0); Total Bilirubin 0.9 mg/dL (0.2-1.0); Total Protein 5.3 g/dL (6.4-8.9); eGFR CKD-EPI 40.2 (>60)
[2021-06-21] MEDS: Vitamin THERAPEUTIC TAB PO SCH (09:37)
[2021-06-21] MEDS: Cholecalciferol (VIT D3) 1,000 unit TAB PO SCH (09:38)
[2021-06-21] MEDS: NIACIN 100 MG PO SCH (09:39)
[2021-06-21] MEDS: Insulin GLARGINE 100 un/ml 10 ml VIAL SUBCUT SCH ×2 (09:49→19:59)
[2021-06-21] MEDS: Nystatin TOP POWDER 15 GM BTL TOPICAL SCH ×3 (09:50→19:59)
[2021-06-21] MEDS: Multivitamins/Mins AREDS2 (NF) CAP PO SCH (12:22)
[2021-06-21] MEDS: cefTRIAXone 1 gm/50 mL NS BAG 1 GM/50 ML BAG IVPB SCH (19:58)
[2021-06-22] MEDS: Multivitamins/Mins AREDS2 (NF) CAP PO SCH ×4 (00:03→23:19)
[2021-06-22 05:37] LABS: ABS Eosinophils 0.1 10^3/ul (0-0.6); ABS Lymphocytes 0.6 10^3/ul (1.0-4.8); ABS Monocytes 0.3 10^3/ul (0-0.8); Eosinophil % 4.1 %; Hematocrit 29 % (42-52); Hemoglobin 9.8 g/dL (14.0-18.0); Lymphocyte % 31.3 %; Mean Corpuscular HGB Conc 34 g/dL (31-36); Mean Corpuscular Hemoglobin 35 pg (27-31); Mean Corpuscular Volume 104 fL (80-94); Mean Platelet Volume 9.6 fL (7.4-10.4); Platelet Count 48 10^3/uL (150-450); Red Blood Count 2.78 10^6 /uL (4.18-5.48); Red Cell Distribution Width 15 % (10-15); White Blood Count 1.9 10^3/uL (3.5-10.8)
[2021-06-22 05:48] LABS: C Reactive Protein 42.66 mg/L (<8.01); Calcium 8.3 mg/dL (8.6-10.3); Potassium 3.5 mmol/L (3.5-5.0); eGFR CKD-EPI 45.1 (>60)
[2021-06-22] MEDS ORDERED: D5W 1/2 NS 1000 ml BAG 1,000 ML IV SCH (09:00)
[2021-06-22] MEDS: Insulin GLARGINE 100 un/ml 10 ml VIAL SUBCUT SCH ×2 (09:14→20:04)
[2021-06-22] MEDS: Vitamin THERAPEUTIC TAB PO SCH (09:15)
[2021-06-22] MEDS: Nystatin TOP POWDER 15 GM BTL TOPICAL SCH ×3 (09:15→20:06)
[2021-06-22] MEDS: Cholecalciferol (VIT D3) 1,000 unit TAB PO SCH (09:15)
[2021-06-22] MEDS: NIACIN 100 MG PO SCH (09:16)
[2021-06-22] MEDS ORDERED: Naloxone 0.4 mg VIAL 0.4 mg/ml 1 ml VIAL ONE (10:53)
[2021-06-22] MEDS ORDERED: Midazolam 5 mg/5 ml VIAL 1 mg/ml 5 ml VIAL (5 mg) ONE (10:53)
[2021-06-22] MEDS ORDERED: Flumazenil 0.5 mg/5 ml 0.1 MG/ML 5 ml VIAL ONE (10:53)
[2021-06-22] MEDS ORDERED: fentaNYL 100 mcg/2 ml 50 MCG/ML VIAL ONE (10:53)
[2021-06-22] MEDS ORDERED: Perflutren Lipid Microsphere 3 ML VIAL ONE (10:55)
[2021-06-22] MEDS: cefTRIAXone 1 gm/50 mL NS BAG 1 GM/50 ML BAG IVPB SCH (20:04)
[2021-06-23 06:09] LABS: ABS Eosinophils 0.1 10^3/ul (0-0.6); ABS Lymphocytes 0.6 10^3/ul (1.0-4.8); ABS Monocytes 0.2 10^3/ul (0-0.8); ABS Neutrophils 1.4 10^3/ul (1.5-7.7); Eosinophil % 3.1 %; Hematocrit 30 % (42-52); Lymphocyte % 26.5 %; Mean Corpuscular HGB Conc 33 g/dL (31-36); Mean Corpuscular Hemoglobin 35 pg (27-31); Mean Corpuscular Volume 104 fL (80-94); Mean Platelet Volume 9.7 fL (7.4-10.4); Nucleated Red Blood Cells % 0.2; Platelet Count 68 10^3/uL (150-450); Red Blood Count 2.88 10^6 /uL (4.18-5.48); Red Cell Distribution Width 15 % (10-15); White Blood Count 2.4 10^3/uL (3.5-10.8)
[2021-06-23] MEDS: Vitamin THERAPEUTIC TAB PO SCH (07:59)
[2021-06-23] MEDS: Cholecalciferol (VIT D3) 1,000 unit TAB PO SCH (08:00)
[2021-06-23] MEDS: Insulin GLARGINE 100 un/ml 10 ml VIAL SUBCUT SCH ×2 (08:00→20:24)
[2021-06-23] MEDS: Nystatin TOP POWDER 15 GM BTL TOPICAL SCH ×3 (08:00→20:24)
[2021-06-23] MEDS: NIACIN 100 MG PO SCH (08:07)
[2021-06-23] MEDS: Multivitamins/Mins AREDS2 (NF) CAP PO SCH ×2 (10:39→22:52)
[2021-06-23] MEDS ORDERED: Buffered Lidocaine 1% SYRIN 1 ml INTRADERM ONE (11:30)
[2021-06-23] MEDS ORDERED: Furosemide 20 mg/2 ml IV VIAL IV SLOW PU ONE (14:46)
[2021-06-23] MEDS: cefTRIAXone 1 gm/50 mL NS BAG 1 GM/50 ML BAG IVPB SCH (20:24)
[2021-06-24 05:04] LABS: ABS Eosinophils 0.1 10^3/ul (0-0.6); ABS Lymphocytes 0.7 10^3/ul (1.0-4.8); ABS Monocytes 0.3 10^3/ul (0-0.8); ABS Neutrophils 1.3 10^3/ul (1.5-7.7); Eosinophil % 3.7 %; Hematocrit 28 % (42-52); Hemoglobin 9.4 g/dL (14.0-18.0); Lymphocyte % 28.9 %; Mean Corpuscular HGB Conc 34 g/dL (31-36); Mean Corpuscular Hemoglobin 35 pg (27-31); Mean Corpuscular Volume 104 fL (80-94); Mean Platelet Volume 10.3 fL (7.4-10.4); Nucleated Red Blood Cells % 0.1; Platelet Count 72 10^3/uL (150-450); Red Blood Count 2.71 10^6 /uL (4.18-5.48); Red Cell Distribution Width 15 % (10-15); White Blood Count 2.4 10^3/uL (3.5-10.8)
[2021-06-24] MEDS: Vitamin THERAPEUTIC TAB PO SCH (07:53)
[2021-06-24] MEDS: Cholecalciferol (VIT D3) 1,000 unit TAB PO SCH (07:54)
[2021-06-24] MEDS: NIACIN 100 MG PO SCH (07:54)
[2021-06-24] MEDS: Nystatin TOP POWDER 15 GM BTL TOPICAL SCH ×2 (07:55→15:11)
[2021-06-24] MEDS: Insulin GLARGINE 100 un/ml 10 ml VIAL SUBCUT SCH (10:13)
[2021-06-24] MEDS: Multivitamins/Mins AREDS2 (NF) CAP PO SCH (10:14)
[2021-06-24 11:16] VITALS: BP 127/64
[2021-06-24] MEDS ORDERED: Furosemide 20 mg/2 ml IV VIAL IV SLOW PU ONE (11:50)
[2021-06-24] MEDS ORDERED: cefTRIAXone 1 gm/50 mL NS BAG 1 GM/50 ML BAG IVPB ONE (14:00)
== END 2021-06-24 18:05 | disposition home or self-care (01) | DRG 872 ==
LOC: EDHOLD 02:01 → ED 02:01 → MED 17:11 → SUATTDRO 06-19 11:00
PROVIDERS: ADMIT Hospitalist; ATTEND Internal Medicine

== ENCOUNTER 2021-07-19 12:33 | Inpatient (IN) ==
[2021-07-19 14:32] LABS: ABS Eosinophils 0.1 10^3/ul (0-0.6); ABS Lymphocytes 0.7 10^3/ul (1.0-4.8); ABS Monocytes 0.3 10^3/ul (0-0.8); ABS Neutrophils 3.6 10^3/ul (1.5-7.7); Eosinophil % 1.7 %; Hematocrit 18 % (42-52); Hemoglobin 5.8 g/dL (14.0-18.0); Mean Corpuscular HGB Conc 32 g/dL (31-36); Mean Corpuscular Hemoglobin 35 pg (27-31); Mean Corpuscular Volume 108 fL (80-94); Mean Platelet Volume 10.1 fL (7.4-10.4); Nucleated Red Blood Cells % 0.1; Platelet Count 87 10^3/uL (150-450); Red Blood Count 1.67 10^6 /uL (4.18-5.48); Red Cell Distribution Width 18 % (10-15); White Blood Count 4.7 10^3/uL (3.5-10.8)
[2021-07-19 14:38] LABS: Albumin 2.9 g/dL (3.2-5.2); Albumin/Globulin Ratio 1.2 (1-3); Calcium 8.3 mg/dL (8.6-10.3); Globulin 2.4 g/dL (2-4); Potassium 4.5 mmol/L (3.5-5.0); Total Bilirubin 0.9 mg/dL (0.2-1.0); Total Protein 5.3 g/dL (6.4-8.9); eGFR CKD-EPI 33.1 (>60)
[2021-07-19 14:57] LABS: Urine Appearance Clear; Urine Bilirubin Negative (Negative); Urine Blood Negative (Negative); Urine Color Yellow; Urine Glucose Negative (Negative); Urine Ketones Trace (Negative); Urine Nitrite Negative (Negative); Urine Protein Negative (Negative); Urine Specific Gravity 1.017 (1.002-1.030); Urine Urobilinogen Negative (Negative)
[2021-07-19] MEDS ORDERED: Dextrose 50% Syringe 50 ml 25 GM/50 ML SYRINGE IV PUSH PRN (17:38)
[2021-07-19] MEDS ORDERED: Pantoprazole VIAL 40 MG VIAL IV ONE (17:39)
[2021-07-19] MEDS ORDERED: cefTRIAXone 1 gm/50 mL NS BAG 1 GM/50 ML BAG IV ONE (17:48)
[2021-07-19] MEDS ORDERED: Pantoprazole 80 mg in NS BAG 80 MG/250 ML BAG IV ONE (18:00)
[2021-07-19] MEDS: Insulin GLARGINE 100 un/ml 10 ml VIAL SUBCUT SCH (21:22)
[2021-07-19 22:26] LABS: Hematocrit 20 % (42-52); Hemoglobin 6.4 g/dL (14.0-18.0)
[2021-07-19 23:39] LABS: Hematocrit 20 % (42-52); Hemoglobin 6.6 g/dL (14.0-18.0); Mean Corpuscular HGB Conc 33 g/dL (31-36); Mean Corpuscular Hemoglobin 34 pg (27-31); Mean Corpuscular Volume 102 fL (80-94); Platelet Count 81 10^3/uL (150-450); Red Blood Count 1.95 10^6 /uL (4.18-5.48); Red Cell Distribution Width 21 % (10-15); White Blood Count 3.7 10^3/uL (3.5-10.8)
[2021-07-20] MEDS ORDERED: NS IV ONE (04:38)
[2021-07-20] MEDS ORDERED: PANTOPRAZOLE IV ONE (04:38)
[2021-07-20] MEDS: NS 0.9% 1000 ml BAG 1,000 ML IV SCH (05:01)
[2021-07-20 06:18] LABS: ABS Eosinophils 0.1 10^3/ul (0-0.6); ABS Lymphocytes 0.6 10^3/ul (1.0-4.8); ABS Monocytes 0.2 10^3/ul (0-0.8); ABS Neutrophils 1.9 10^3/ul (1.5-7.7); Eosinophil % 3.5 %; Hematocrit 20 % (42-52); Hemoglobin 6.8 g/dL (14.0-18.0); Lymphocyte % 20.6 %; Mean Corpuscular HGB Conc 34 g/dL (31-36); Mean Corpuscular Hemoglobin 34 pg (27-31); Mean Corpuscular Volume 101 fL (80-94); Mean Platelet Volume 9.6 fL (7.4-10.4); Nucleated Red Blood Cells % 0.2; Platelet Count 68 10^3/uL (150-450); Red Blood Count 1.97 10^6 /uL (4.18-5.48); Red Cell Distribution Width 21 % (10-15); White Blood Count 2.9 10^3/uL (3.5-10.8)
[2021-07-20 06:41] LABS: Calcium 7.9 mg/dL (8.6-10.3); Potassium 3.7 mmol/L (3.5-5.0); eGFR CKD-EPI 36.2 (>60)
[2021-07-20] MEDS: Insulin GLARGINE 100 un/ml 10 ml VIAL SUBCUT SCH ×2 (10:18→22:34)
[2021-07-20] MEDS ORDERED: Midazolam 10 mg/10 ml VIAL 1 mg/ml 10 ml VIAL (10 mg) ONE (14:41)
[2021-07-20] MEDS ORDERED: fentaNYL 100 mcg/2 ml 50 MCG/ML VIAL ONE (14:41)
[2021-07-20] MEDS: Pantoprazole 80 mg in NS BAG 80 MG/250 ML BAG IV SCH (17:03)
[2021-07-20] MEDS ORDERED: cefTRIAXone 1 gm/50 mL NS BAG 1 GM/50 ML BAG IVPB SCH (18:00)
[2021-07-20 18:29] LABS: Hematocrit 25 % (42-52); Hemoglobin 8.2 g/dL (14.0-18.0)
[2021-07-21] MEDS: NS 0.9% 1000 ml BAG 1,000 ML IV SCH (03:00)
[2021-07-21] MEDS: Pantoprazole 80 mg in NS BAG 80 MG/250 ML BAG IV SCH ×2 (04:47→13:13)
[2021-07-21 06:56] LABS: ABS Eosinophils 0.1 10^3/ul (0-0.6); ABS Lymphocytes 0.7 10^3/ul (1.0-4.8); ABS Monocytes 0.2 10^3/ul (0-0.8); Eosinophil % 3.5 %; Hematocrit 24 % (42-52); Hemoglobin 8.1 g/dL (14.0-18.0); Lymphocyte % 22.3 %; Mean Corpuscular HGB Conc 34 g/dL (31-36); Mean Corpuscular Hemoglobin 34 pg (27-31); Mean Corpuscular Volume 101 fL (80-94); Platelet Count 63 10^3/uL (150-450); Red Blood Count 2.36 10^6 /uL (4.18-5.48); Red Cell Distribution Width 21 % (10-15)
[2021-07-21] MEDS: Insulin GLARGINE 100 un/ml 10 ml VIAL SUBCUT SCH ×2 (09:44→23:05)
[2021-07-21] MEDS: Enoxaparin 100 MG/ML SYR SUBCUT SCH ×2 (11:26→23:04)
[2021-07-21] MEDS: Iron Sucrose 200 MG in NS 0.9% 100 ml BAG 100 ML IVPB SCH (11:49)
[2021-07-21] MEDS: Pravastatin 20 mg TAB (NF) PO SCH (23:04)
[2021-07-22 05:06] LABS: ABS Eosinophils 0.1 10^3/ul (0-0.6); ABS Lymphocytes 0.7 10^3/ul (1.0-4.8); ABS Monocytes 0.3 10^3/ul (0-0.8); ABS Neutrophils 2.9 10^3/ul (1.5-7.7); Eosinophil % 3.3 %; Hematocrit 24 % (42-52); Hemoglobin 8.1 g/dL (14.0-18.0); Lymphocyte % 17.6 %; Mean Corpuscular HGB Conc 34 g/dL (31-36); Mean Corpuscular Hemoglobin 34 pg (27-31); Mean Corpuscular Volume 100 fL (80-94); Mean Platelet Volume 9.9 fL (7.4-10.4); Nucleated Red Blood Cells % 0.1; Platelet Count 66 10^3/uL (150-450); Red Blood Count 2.39 10^6 /uL (4.18-5.48); Red Cell Distribution Width 20 % (10-15); White Blood Count 4.1 10^3/uL (3.5-10.8)
[2021-07-22 05:18] LABS: Calcium 7.8 mg/dL (8.6-10.3); Potassium 3.9 mmol/L (3.5-5.0); eGFR CKD-EPI 46.5 (>60)
[2021-07-22] MEDS: Iron Sucrose 200 MG in NS 0.9% 100 ml BAG 100 ML IVPB SCH (07:36)
[2021-07-22] MEDS: Insulin GLARGINE 100 un/ml 10 ml VIAL SUBCUT SCH ×2 (08:34→20:24)
[2021-07-22] MEDS: Enoxaparin 100 MG/ML SYR SUBCUT SCH ×2 (10:47→21:14)
[2021-07-22 16:19] LABS: % Iron Saturation 4 % (14 - 50); Total Iron Binding Capacity 297 mcg/dL (250 - 400)
[2021-07-22] MEDS ORDERED: Magnesium Hydroxide LIQ 30 ML UDC PO PRN (19:59)
[2021-07-22] MEDS: Pravastatin 20 mg TAB (NF) PO SCH (20:25)
[2021-07-23 06:16] LABS: ABS Eosinophils 0.1 10^3/ul (0-0.6); ABS Lymphocytes 0.7 10^3/ul (1.0-4.8); ABS Monocytes 0.2 10^3/ul (0-0.8); ABS Neutrophils 2.1 10^3/ul (1.5-7.7); Hematocrit 24 % (42-52); Hemoglobin 7.7 g/dL (14.0-18.0); Lymphocyte % 22.9 %; Mean Corpuscular HGB Conc 33 g/dL (31-36); Mean Corpuscular Hemoglobin 33 pg (27-31); Mean Corpuscular Volume 102 fL (80-94); Platelet Count 73 10^3/uL (150-450); Red Blood Count 2.32 10^6 /uL (4.18-5.48); Red Cell Distribution Width 20 % (10-15); White Blood Count 3.3 10^3/uL (3.5-10.8)
[2021-07-23] MEDS ORDERED: Senna TAB 8.6 mg TAB PO PRN (08:40)
[2021-07-23] MEDS: Insulin GLARGINE 100 un/ml 10 ml VIAL SUBCUT SCH (09:13)
[2021-07-23] MEDS: Iron Sucrose 200 MG in NS 0.9% 100 ml BAG 100 ML IVPB SCH (09:24)
[2021-07-23] MEDS: Enoxaparin 100 MG/ML SYR SUBCUT SCH (11:33)
[2021-07-23 12:53] LABS: Hematocrit 26 % (42-52); Hemoglobin 8.6 g/dL (14.0-18.0)
[2021-07-23 17:15] VITALS: BP 132/50
== END 2021-07-23 16:50 | disposition home or self-care (01) | DRG 378 ==
LOC: ED 12:33 → SUATTDRO 16:56 → EDHOLD 16:56 → MEDTELE 07-20 11:20
PROVIDERS: ADMIT Internal Medicine; ATTEND Hospitalist

== ENCOUNTER 2021-09-26 18:14 | Inpatient (IN) ==
[2021-09-26] MEDS ORDERED: Lactated Ringers 1000 ml BAG 1,000 ML IV ONE (18:42)
[2021-09-26 19:10] LABS: ABS Eosinophils 0.1 10^3/ul (0-0.6); ABS Lymphocytes 0.5 10^3/ul (1.0-4.8); ABS Monocytes 0.5 10^3/ul (0-0.8); ABS Neutrophils 4.4 10^3/ul (1.5-7.7); Eosinophil % 2.4 %; Hematocrit 27 % (42-52); Lymphocyte % 9.7 %; Mean Corpuscular HGB Conc 33 g/dL (31-36); Mean Corpuscular Hemoglobin 33 pg (27-31); Mean Corpuscular Volume 100 fL (80-94); Platelet Count 117 10^3/uL (150-450); Red Blood Count 2.76 10^6 /uL (4.18-5.48); Red Cell Distribution Width 18 % (10-15); White Blood Count 5.6 10^3/uL (3.5-10.8)
[2021-09-26 19:25] LABS: Activated Partial Thrombo Time 31.1 seconds (26.0-38.0); INR 1.32 (0.86-1.15)
[2021-09-26 19:38] LABS: Albumin 3.8 g/dL (3.2-5.2); Albumin/Globulin Ratio 1.4 (1-3); C Reactive Protein 7.22 mg/L (<8.01); Calcium 9.4 mg/dL (8.6-10.3); Globulin 2.7 g/dL (2-4); Total Bilirubin 0.7 mg/dL (0.2-1.0); Total Protein 6.5 g/dL (6.4-8.9); eGFR CKD-EPI 26.3 (>60)
[2021-09-26 20:33] LABS: High Sensitivity Troponin 1 Hr 26 pg/mL (<20)
[2021-09-26] MEDS ORDERED: cefTRIAXone 1 gm/50 mL NS BAG 1 GM/50 ML BAG IV ONE (20:42)
[2021-09-26 23:38] LABS: Urine Appearance Cloudy; Urine Bilirubin Negative (Negative); Urine Blood Negative (Negative); Urine Color Yellow; Urine Glucose Negative (Negative); Urine Ketones Negative (Negative); Urine Nitrite Negative (Negative); Urine Protein 1+(30 mg/dL) (Negative); Urine Specific Gravity 1.013 (1.002-1.030); Urine Urobilinogen Negative (Negative)
[2021-09-26 23:44] LABS: Urine Bacteria Absent (Absent); Urine Red Blood Cell Trace(0-2/hpf) (Absent); Urine Squamous Epithelial Cell Present (Absent); Urine White Blood Cell Trace(0-5/hpf) (Absent)
[2021-09-27] MEDS ORDERED: Lactated Ringers 1000 ml BAG 1,000 ML IV SCH (04:00)
[2021-09-27] MEDS ORDERED: Dextrose 50% Syringe 50 ml 25 GM/50 ML SYRINGE IV PUSH PRN (06:10)
[2021-09-27 06:15] LABS: Hematocrit 28 % (42-52); Mean Corpuscular HGB Conc 32 g/dL (31-36); Mean Corpuscular Hemoglobin 33 pg (27-31); Mean Corpuscular Volume 105 fL (80-94); Platelet Count 43 10^3/uL (150-450); Red Cell Distribution Width 18 % (10-15); White Blood Count 3.6 10^3/uL (3.5-10.8)
[2021-09-27 06:36] LABS: ABS Eosinophils 0.2 10^3/ul (0-0.6); ABS Lymphocytes 0.7 10^3/ul (1.0-4.8); ABS Monocytes 0.4 10^3/ul (0-0.8); ABS Neutrophils 2.3 10^3/ul (1.5-7.7); Lymphocyte % 18.7 %; Nucleated Red Blood Cells % 0.1
[2021-09-27 06:41] LABS: Magnesium 2.2 mg/dL (1.9-2.7); Phosphorus 3.4 mg/dL (2.5-5.0)
[2021-09-27 06:42] LABS: Potassium 4.7 mmol/L (3.5-5.0); eGFR CKD-EPI 28.5 (>60)
[2021-09-27] MEDS: Multivitamins/Minerals TAB PO SCH (08:44)
[2021-09-27] MEDS: Cholecalciferol (VIT D3) 1,000 unit TAB PO SCH (08:44)
[2021-09-27] MEDS ORDERED: Multivitamins/Mins AREDS2 (NF) CAP PO SCH (09:00)
[2021-09-27] MEDS ORDERED: Insulin GLARGINE 100 un/ml 10 ml VIAL SUBCUT SCH (09:00)
[2021-09-27] MEDS: Enoxaparin 100 MG/ML SYR SUBCUT SCH (09:02)
[2021-09-27] MEDS: NIACIN 100 MG PO SCH (09:02)
[2021-09-27 10:54] LABS: Urine Creatinine Concentration 58.66 mg/dL
[2021-09-27 13:34] LABS: Osmolality Serum 294 mOsm/kg (275-295); Urine Osmo 495 mOsm/kg (150-1150)
[2021-09-27] MEDS: cefTRIAXone 1 gm/50 mL NS BAG 1 GM/50 ML BAG IVPB SCH (21:14)
[2021-09-28 04:55] LABS: ABS Eosinophils 0.1 10^3/ul (0-0.6); ABS Monocytes 0.5 10^3/ul (0-0.8); ABS Neutrophils 2.5 10^3/ul (1.5-7.7); Eosinophil % 2.3 %; Hematocrit 25 % (42-52); Hemoglobin 8.3 g/dL (14.0-18.0); Lymphocyte % 24.1 %; Mean Corpuscular HGB Conc 33 g/dL (31-36); Mean Corpuscular Hemoglobin 33 pg (27-31); Mean Corpuscular Volume 100 fL (80-94); Mean Platelet Volume 9.3 fL (7.4-10.4); Platelet Count 90 10^3/uL (150-450); Red Blood Count 2.51 10^6 /uL (4.18-5.48); Red Cell Distribution Width 17 % (10-15)
[2021-09-28 05:06] LABS: Calcium 8.8 mg/dL (8.6-10.3); Potassium 4.2 mmol/L (3.5-5.0); eGFR CKD-EPI 25.8 (>60)
[2021-09-28] MEDS: NIACIN 100 MG PO SCH (09:18)
[2021-09-28] MEDS: Cholecalciferol (VIT D3) 1,000 unit TAB PO SCH (09:35)
[2021-09-28] MEDS: Multivitamins/Minerals TAB PO SCH (09:36)
[2021-09-28] MEDS: Enoxaparin 100 MG/ML SYR SUBCUT SCH (09:41)
[2021-09-28] MEDS: cefTRIAXone 1 gm/50 mL NS BAG 1 GM/50 ML BAG IVPB SCH (21:13)
[2021-09-29 06:17] LABS: Hematocrit 24 % (42-52); Hemoglobin 7.8 g/dL (14.0-18.0); Mean Corpuscular HGB Conc 33 g/dL (31-36); Mean Corpuscular Hemoglobin 33 pg (27-31); Mean Corpuscular Volume 99 fL (80-94); Mean Platelet Volume 8.3 fL (7.4-10.4); Platelet Count 72 10^3/uL (150-450); Red Blood Count 2.38 10^6 /uL (4.18-5.48); Red Cell Distribution Width 17 % (10-15)
[2021-09-29 06:26] LABS: Calcium 8.6 mg/dL (8.6-10.3); Potassium 4.3 mmol/L (3.5-5.0); eGFR CKD-EPI 31.3 (>60)
[2021-09-29] MEDS: NIACIN 100 MG PO SCH (08:47)
[2021-09-29] MEDS: Enoxaparin 100 MG/ML SYR SUBCUT SCH (08:51)
[2021-09-29] MEDS: Cholecalciferol (VIT D3) 1,000 unit TAB PO SCH (08:55)
[2021-09-29] MEDS: Multivitamins/Minerals TAB PO SCH (08:58)
[2021-09-29] MEDS: cefTRIAXone 1 gm/50 mL NS BAG 1 GM/50 ML BAG IVPB SCH (20:53)
[2021-09-30 06:58] LABS: Calcium 8.6 mg/dL (8.6-10.3); Potassium 4.4 mmol/L (3.5-5.0); eGFR CKD-EPI 32.7 (>60)
[2021-09-30 06:59] LABS: ABS Eosinophils 0.1 10^3/ul (0-0.6); ABS Lymphocytes 0.7 10^3/ul (1.0-4.8); ABS Monocytes 0.3 10^3/ul (0-0.8); ABS Neutrophils 1.8 10^3/ul (1.5-7.7); Eosinophil % 3.6 %; Hematocrit 24 % (42-52); Hemoglobin 7.9 g/dL (14.0-18.0); Lymphocyte % 24.5 %; Mean Corpuscular HGB Conc 34 g/dL (31-36); Mean Corpuscular Hemoglobin 33 pg (27-31); Mean Corpuscular Volume 99 fL (80-94); Mean Platelet Volume 9.6 fL (7.4-10.4); Nucleated Red Blood Cells % 0.1; Platelet Count 80 10^3/uL (150-450); Red Blood Count 2.38 10^6 /uL (4.18-5.48); Red Cell Distribution Width 17 % (10-15); White Blood Count 2.9 10^3/uL (3.5-10.8)
[2021-09-30] MEDS: Cholecalciferol (VIT D3) 1,000 unit TAB PO SCH (09:01)
[2021-09-30] MEDS: Multivitamins/Minerals TAB PO SCH (09:02)
[2021-09-30] MEDS: Enoxaparin 100 MG/ML SYR SUBCUT SCH (09:02)
[2021-09-30] MEDS: NIACIN 100 MG PO SCH (09:09)
[2021-09-30 11:05] VITALS: BP 94/53
== END 2021-09-30 12:54 | disposition swing bed (61) | DRG 871 ==
LOC: ED 18:14 → MEDTELE 09-27 05:06 → SUATTDRO 09-27 05:06
PROVIDERS: ADMIT Internal Medicine; ATTEND Student in an Organized Health Care Education/Training Program